=== PATIENT | female | born 1975 | race Hispanic/Latino ===

== ENCOUNTER 2018-07-30 14:29 | Emergency (ER) | payer OTHER ==
[2018-07-30] MEDS ORDERED: MORPHINE 4 MG/ML SYR ONE (15:20)
[2018-07-30] MEDS ORDERED: ONDANSETRON 4 MG/2 ML VIAL ONE (15:20)
[2018-07-30 15:27] LABS: Absolute Lymphocytes (CBC) 1.5 K/uL (0.7-4.9); Absolute Monocytes 0.5 K/uL (0.1-1.3); Absolute Neutrophil 7.2 K/uL (1.8-8.0); Basophils % 0.2 % (0-1.3); Eosinophils % 0.5 % (0-4.4); Hematocrit 34.7 % (36.0-45.0); Lymphocytes % 16.5 % (15.3-44.8); MCH 28.5 pg (27.0-35.0); MPV 7.3 fL (7.6-11.3); Monocytes % 5.8 % (3.3-12.3); RBC Red Blood Cell Count 4.09 M/uL (3.86-4.86)
[2018-07-30 16:39] LABS: Albumin 3.7 g/dL (3.4-5.0); Bilirubin Direct 0.2 mg/dL (0-0.2); Bilirubin Total 0.3 mg/dL (0.2-1.0); Protein, Total 7.9 g/dL (6.4-8.2)
--- NOTE | 2018-07-30 17:06 | RAD REPORT ---
EXAM DESCRIPTION: CT - Abdomen Pelvis W Contrast - 07/30/2018 4:48 pm CLINICAL HISTORY: Abdominal pain. Left-sided pain with vomiting COMPARISON: 2014 TECHNIQUE: Computed axial tomography of the abdomen and pelvis was obtained. 100 cc Isovue-300 is ad ministered intravenously. Oral contrast was given. All CT scans are performed using dose optimization technique as appropriate and may include automated exposure control or mA/KV adjustment according to patient size. FINDINGS: The gallbladder has been removed The liver, spleen, pancreas, adrenals and kidneys appear unremarkable. An adnexal mass is not seen. . There is no evidence of diverticulitis Postsurgical changes of a gastric bypass are seen. A moderate amount of stool is present within the colon Right periumbilical hernia contains fat. The neck measures 13 millimeters IMPRESSION: Moderate amount of stool within the colon
--- NOTE | 2018-07-30 17:19 | RAD REPORT ---
EXAM DESCRIPTION: [facility] Single View07/30/2018 4:12 pm CLINICAL HISTORY: Chest pain COMPARISON: 2014 FINDINGS: The lungs appear clear of acute infiltrate. The heart is normal size IMPRESSION: No acute abnormalities displayed
[2018-07-30 17:25] LABS: Urine Blood 2+ (NEG); Urine Glucose NEGATIVE (NEG); Urine Protein NEGATIVE (NEG); Urine Specific Gravity 1.015 (1.005-1.030); Urine pH 7.5 (5.0-7.0)
--- NOTE | 2018-07-30 18:43 | ER ---
Nurse's Notes [facility] Name: Elizabeth Cormier Age: 43 yrs Sex: Female : 1975 Arrival Date: 07/30/2018 Time: 14:32 Bed 30 Private MD: Juiec Bean B Diagnosis: Hepatitis Presentation: 07/30 14:33 Presenting complaint: Patient states: LUQ and LLQ pain that started this morning. c/o sv chest discomfort as well. c/o nausea. Transition of care: patient was not received from another setting of care. Onset of symptoms was July 30, 2018. Care prior to arrival: None. 14:33 Method Of Arrival: Ambulatory sv 14:33 Acuity: BHARATHI 3 sv 15:15 Risk Assessment: Do you want to hurt yourself or someone else? Patient reports no iw desire to harm self or others. Initial Sepsis Screen: Does the patient meet any 2 criteria? No. Patient's initial sepsis screen is negative. Does the patient have a suspected source of infection? No. Patient's initial sepsis screen is negative. 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 - Social history:: Smoking status: Patient/guardian denies using tobacco. - Ebola Screening: : Patient negative for fever greater than or equal to 101.5 degrees Fahrenheit, and additional compatible Ebola Virus Disease symptoms Patient denies exposure to infectious person Patient denies travel to an Ebola-affected area in the 21 days before illness onset No symptoms or risks identified at this time. Screenin:09 Abuse screen: Denies threats or abuse. Denies injuries from another. Nutritional iw screening: No deficits noted. Tuberculosis screening: No symptoms or risk factors identified. Fall Risk IV access (20 points). Assessment: 15:10 General: Appears uncomfortable, Behavior is calm, cooperative. Pain: Complains of pain iw in left low back and left mid back Pain radiates to right upper quadrant, left upper quadrant and left lower quadrant Pain currently is 8 out of 10 on a pain scale. Neuro: Level of Consciousness is awake, alert, obeys commands, Oriented to person, place, time, situation, Moves all extremities. Full function. Cardiovascular: Patient's skin is warm and dry. Respiratory: Respiratory effort is even, unlabored, Respiratory pattern is regular, symmetrical. GI: Abdomen is non-distended, Bowel sounds present X 4 quads. Abd is soft X 4 quads Reports upper abdominal pain, nausea, vomiting. : Denies burning with urination. Derm: Skin is intact, is healthy with good turgor. Musculoskeletal: Range of motion: intact in all extremities. 16:07 Reassessment: Patient appears in no apparent distress at this time. Patient and/or iw family updated on plan of care and expected duration. Pain level reassessed. Patient is alert, oriented x 3, equal unlabored respirations, skin warm/dry/pink. 16:32 Reassessment: Patient appears in no apparent distress at this time. Patient and/or iw family updated on plan of care and expected duration. Pain level reassessed. Patient is alert, oriented x 3, equal unlabored respirations, skin warm/dry/pink. pt states pain has improved, nausea is resolved Patient states feeling better. Patient states symptoms have improved. Vital Signs: 14:34 BP 119 / 71; Pulse 107; Resp 20; Temp 98.7; Pulse Ox 98% ; Weight 66.22 kg; Height 5 sv ft. 1 in. (154.94 cm); 16:09 BP 115 / 68; Pulse 102; Resp 16; Pulse Ox 100% on R/A; iw 17:19 BP 119 / 69; Pulse 98; Resp 16; Pulse Ox 100% on R/A; iw 14:34 Body Mass Index 27.58 (66.22 kg, 154.94 cm) sv ED Course: 14:32 Patient arrived in ED. as 14:33 Juice Bean MD is Private Physician. as 14:33 Triage completed. sv 14:34 Arm band placed on. sv 14:37 Fernando Montoya PA is PHCP. [facility] 14:37 Victor Manuel Nichols MD is Attending Physician. [facility] 14:48 Yumiko Delong, DENNIS is Primary Nurse. iw 15:00 Placed in gown. Bed in low position. Call light in reach. Side rails up X 1. Side rails jp3 up X2. Warm blanket given. Pillow given. Pulse ox on. NIBP on. 15:00 Urine collected: clean catch specimen, clear, lorne colored, blood tinged, Amount jp3 Voided: 120mL. 15:05 Initial lab(s) drawn, by me, sent to lab. Inserted saline lock: 22 gauge in right 3 antecubital area, using aseptic technique. Blood collected. 15:15 Urine --Ancillary (enter results) Sent. jp3 15:15 Urine Dipstick--Ancillary (enter results) Sent. jp3 15:15 Basic Metabolic Panel Sent. jp3 15:15 CBC with Diff Sent. jp3 15:15 Creatinine for Radiology Sent. jp3 15:15 Hepatic Function Sent. jp3 15:15 Lipase Sent. jp3 15:56 Troponin (emerg Dept Use Only) Sent. iw 15:56 Troponin (Emerg Dept Use Only) Sent. iw 16:05 EKG done, by ED staff, reviewed by Fernando EDGE. jp3 16:12 Chest Single View XRAY In Process Unspecified. EDMS 16:48 CT Abd/Pelvis - W/Contrast In Process Unspecified. EDMS 18:41 Theodore Sethi MD is Referral Physician. [facility] 19:00 No provider procedures requiring assistance completed. IV discontinued, intact, iw bleeding controlled, No redness/swelling at site. Pressure dressing applied. Administered Medications: 15:35 Drug: morphine 4 mg Route: IVP; Site: right antecubital; iw 15:35 Drug: Zofran 4 mg Route: IVP; Site: right antecubital; iw Outcome: 18:42 Discharge ordered by MD. [facility] 19:05 Discharged to home ambulatory, with family. iw 19:05 Condition: good 19:05 Discharge instructions given to patient, family, Instructed on discharge instructions, follow up and referral plans. Demonstrated understanding of instructions, follow-up care. 19:07 Patient left the ED. Signatures: Dispatcher [employer] EDMS Tania Faustin, RN RN Fernando Pizano PA PA jmm Martinez, Amelia as Williams, Irene, RN RN Himanshu Kolb jp3 Corrections: (The following items were deleted from the chart) 14:36 14:34 Pulse 107bpm; Resp 20bpm; Pulse Ox 98%; Temp 98.7F; 66.22 kg; Height 5 ft. 1 in.; sv BMI: 27.5; sv
--- NOTE | 2018-07-30 18:43 | EDPHYS ---
Physician Documentation [facility] Name: Elizabeth Cormier Age: 43 yrs Sex: Female : 1975 Arrival Date: 07/30/2018 Time: 14:32 Bed 30 Private MD: Juice Bean B ED Physician Victor Manuel Nichols HPI: 07/30 14:50 This 43 yrs old Female presents to ER via Ambulatory with complaints of jmm Abdominal Pain, Back Pain. 14:50 The patient presents with abdominal pain in the left lower quadrant. Onset: The jmm symptoms/episode began/occurred gradually, today. The symptoms radiate to abdomen. 14:50 Associated signs and symptoms: Pertinent positives: nausea. jmm 14:50 The patient has not experienced similar symptoms in the past. This is a 43 year old jmm female that presents to the ED with left side back pain, radiating into her abdomen beginning earlier today. Patient also complains of nausea with chest pain which is currently resolved. Patient has a surgical history of gastric bypass. Patient states symptoms were worse when diagnosed with diverticulitis. . 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 - Social history:: Smoking status: Patient/guardian denies using tobacco. - Ebola Screening: : Patient negative for fever greater than or equal to 101.5 degrees Fahrenheit, and additional compatible Ebola Virus Disease symptoms Patient denies exposure to infectious person Patient denies travel to an Ebola-affected area in the 21 days before illness onset No symptoms or risks identified at this time. ROS: 14:50 Constitutional: Negative for fever, chills, and weight loss, Cardiovascular: Negative jmm for chest pain, palpitations, and edema, Respiratory: Negative for shortness of breath, cough, wheezing, and pleuritic chest pain. 14:50 MS/Extremity: Negative for injury and deformity, Skin: Negative for injury, rash, and discoloration, Neuro: Negative for headache, weakness, numbness, tingling, and seizure. 14:50 Abdomen/GI: Positive for abdominal pain, nausea. 14:50 Back: Positive for pain at rest. 14:50 All other systems are negative. Exam: 14:50 Head/Face: atraumatic. Chest/axilla: Normal chest wall appearance and motion. [facility] Cardiovascular: Regular rate and rhythm. No edema appreciated Respiratory: Normal respirations, no respiratory distress appreciated 14:50 Constitutional: The patient appears in no acute distress, alert, awake. 14:50 Abdomen/GI: Inspection: abdomen appears normal, Bowel sounds: normal, Palpation: soft, mild abdominal tenderness, in the left upper quadrant and left lower quadrant. 14:50 Back: ROM is normal. 14:50 Skin: Appearance: Color: normal in color. 14:50 Neuro: Orientation: is normal, Mentation: is normal, Memory: is normal. 14:50 Psych: Behavior/mood is pleasant, cooperative. Vital Signs: 14:34 BP 119 / 71; Pulse 107; Resp 20; Temp 98.7; Pulse Ox 98% ; Weight 66.22 kg; Height 5 sv ft. 1 in. (154.94 cm); 16:09 BP 115 / 68; Pulse 102; Resp 16; Pulse Ox 100% on R/A; iw 17:19 BP 119 / 69; Pulse 98; Resp 16; Pulse Ox 100% on R/A; iw 14:34 Body Mass Index 27.58 (66.22 kg, 154.94 cm) sv MDM: 14:50 Patient medically screened. [facility] 18:40 Data reviewed: vital signs, nurses notes. Counseling: I had a detailed discussion with noy the patient and/or guardian regarding: the historical points, exam findings, and any diagnostic results supporting the discharge/admit diagnosis, the need for outpatient follow up, to return to the emergency department if symptoms worsen or persist or if there are any questions or concerns that arise at home. 18:40 Data reviewed: lab test result(s), radiologic studies, CT scan. [facility] 18:40 ED course: I discussed the patient with Dr. Ibarra whom will follow up with the [facility] patient in clinic. Patient is alert and non toxic in appearance in the ED on discharge. Patient is able to tolerate PO. Patient given strict return precautions. Patient understood and agrees with the plan of care. . 07/30 14:51 Order name: Basic Metabolic Panel; Complete Time: 16:51 [facility] 07/30 14:51 Order name: CBC with Diff; Complete Time: 15:38 [facility] 07/30 14:51 Order name: Creatinine for Radiology; Complete Time: 16:03 [facility] 07/30 14:51 Order name: Hepatic Function; Complete Time: 16:51 [facility] 07/30 14:51 Order name: Lipase; Complete Time: 16:51 [facility] 07/30 15:09 Order name: Urine Dipstick--Ancillary (enter results); Complete Time: 17:45 07/30 14:51 Order name: CT Abd/Pelvis - W/Contrast; Complete Time: 17:20 [facility] 07/30 15:09 Order name: Urine --Ancillary (enter results); Complete Time: 17:45 07/30 15:34 Order name: Troponin (emerg Dept Use Only) [facility] 07/30 15:34 Order name: Chest Single View XRAY; Complete Time: 17:20 [facility] 07/30 15:35 Order name: Troponin (Emerg Dept Use Only); Complete Time: 18:43 [facility] 07/30 17:52 Order name: EKG Electrocardiogram [facility] 07/30 14:51 Order name: IV Saline Lock; Complete Time: 15:11 [facility] 07/30 14:51 Order name: Labs collected and sent; Complete Time: 15:16 [facility] 07/30 15:34 Order name: EKG - Nurse/Tech; Complete Time: 16:05 [facility] Administered Medications: 15:35 Drug: morphine 4 mg Route: IVP; Site: right antecubital; iw 15:35 Drug: Zofran 4 mg Route: IVP; Site: right antecubital; iw Disposition: 07/30/18 18:42 Discharged to Home. Impression: Hepatitis. - Condition is Stable. - Discharge Instructions: Diet and Hepatitis. - Medication Reconciliation Form, Thank You Letter, Antibiotic Education, Prescription Opioid Use, Work release form form. - Follow up: Theodore Sethi MD; When: Tomorrow morning at 0810.; Reason: Recheck today's complaints, Continuance of care, Re-evaluation by your physician. Addendum: 08/01/2018 13:30 Co-signature as Attending Physician, Victor Manuel Nichols MD I agree with the assessment and k dr plan of care. Signatures: [facility] Roxie, Tania, RN RN Victor Manuel Barber MD MD kdr Mickail, Joel, PA PA jmm Williams, Irene, RN RN iw Corrections: (The following items were deleted from the chart) 07/30 19:07 18:42 07/30/2018 18:42 Discharged to Home. Impression: Hepatitis. Condition is Stable. iw Forms are Medication Reconciliation Form, Thank You Letter, Antibiotic Education, Prescription Opioid Use. Follow up: Theodore Sethi; When: Tomorrow morning at 0810.; Reason: Recheck today's complaints, Continuance of care, Re-evaluation by your physician. noy
[2018-07-30 19:11] VITALS: TEMP 98.7
[2018-07-30 19:12] VITALS: O2SAT 100
[2018-07-30 19:13] VITALS: BP 119/69
--- NOTE | 2018-07-31 08:16 | EKG ---
Test Date: 2018-07-30 Test Time: 16:01:14 [employer]: LITZY MEASUREMENT RESULTS: Intervals: Rate: 94 [place]: 134 QRSD: 88 QT: 352 QTc: 440 [place]: P: 42 [place]: 134 QRS: 9 T: -5 INTERPRETIVE STATEMENTS: Normal sinus rhythm Nonspecific T wave abnormality Abnormal ECG Compared to ECG 06/23/2013 10:10:02 T-wave abnormality now present Electronically Signed On 07-31-18 08:15:21 CDT by Isauro Coronado
== END 2018-07-30 19:07 | disposition home or self-care (01) ==
LOC: ER 14:29
DX: K75.9 Inflammatory liver disease, unspecified (principal)
CPT/HCPCS: 36415; 71045; 74177; 80048; 80076; 81003; 81025; 83690; 84484; 85025; 93005; 96374; 96375; 99284; J2405; Q9967

== ENCOUNTER 2018-09-30 06:02 | Day surgery (SDC) | payer OTHER ==
[2018-09-28 14:07] LABS: Absolute Monocytes 0.6 K/uL (0.1-1.3); Basophils % 0.5 % (0-1.3); Eosinophils % 1.5 % (0-4.4); Hematocrit 37.6 % (36.0-45.0); Lymphocytes % 61.3 % (15.3-44.8); MPV 7.5 fL (7.6-11.3); Monocytes % 6.1 % (3.3-12.3)
[2018-09-28 14:13] LABS: Urine Appearance CLEAR; Urine Bilirubin NEGATIVE (NEG); Urine Blood TRACE (NEG); Urine Color YELLOW; Urine Glucose NEGATIVE (NEG); Urine Protein NEGATIVE (NEG); Urine Urobilinogen 0.2 mg/dL (0.2-1.0); Urine pH 7.5 (5.0-7.0)
[2018-09-28 14:18] LABS: Urine Microscopic Reflex ORDER UMIC
[2018-09-28 14:32] LABS: Urine Amorphous Sediment 1+ /HPF (NONE SEEN); Urine Bacteria <20 /HPF (<20); Urine Culture Reflex Order NOT NEEDED; Urine Mucus 1+ /HPF (NONE SEEN)
[2018-09-28 17:19] LABS: Anisocytosis SLIGHT; Blood Morphology Comment NOTED (NOT SEEN); Platelet Estimate INCR; Urine White Blood Cell Casts DIFF
[2018-09-30 06:30] LABS: Specific Gravity 1.015 (1.005-1.030)
[2018-09-30] MEDS ORDERED: CEFAZOLIN 2GM (PREMIX IV) 2 GM/50 ML BAG ONE ×2 (06:32→06:33)
[2018-09-30] MEDS ORDERED: NA CHLORIDE 0.9% 1,000 ML ONE ×3 (06:32→07:00)
[2018-09-30] MEDS ORDERED: SCOPOLAMINE HYDROBROMIDE PATCH TD ONE (06:33)
[2018-09-30] MEDS ORDERED: PROPOFOL 200 MG/20 ML VIAL IV ONE ×2 (06:56→10:33)
[2018-09-30] MEDS ORDERED: ROCURONIUM 50 MG/5 ML VIAL IV ONE ×2 (06:56→08:12)
[2018-09-30] MEDS ORDERED: LIDOCAINE 2% MPF 5 ML VIAL ONE (06:57)
[2018-09-30] MEDS ORDERED: DEXAMETHASONE 10 MG/ML VIAL ONE (06:57)
[2018-09-30] MEDS ORDERED: FENTANYL CITR 250 MCG/5 ML ONE (06:58)
[2018-09-30] MEDS ORDERED: MIDAZOLAM HCL 2 MG/2 ML INJ ONE (06:58)
[2018-09-30] MEDS ORDERED: ONDANSETRON 4 MG/2 ML VIAL ONE ×2 (06:58→10:20)
[2018-09-30] MEDS ORDERED: NEOSTIGMINE 1 MG/ML -5 ML SYRINGE ONE (06:59)
[2018-09-30] MEDS ORDERED: GLYCOPYRROLATE 0.2 MG/ML SYR ONE ×2 (08:12)
[2018-09-30] MEDS ORDERED: EPHEDRINE SULF 50 MG/10 ML SYR ONE (08:18)
[2018-09-30] MEDS ORDERED: KETOROLAC 30 MG/ML INJ ONE (09:40)
[2018-09-30] MEDS: MEPERIDINE HCL 50 MG/ML AMP ONE ×5 (10:45→11:12)
[2018-09-30] MEDS ORDERED: IBUPROFEN 200 MG TAB PO ONE (13:41)
[2018-09-30] MEDS ORDERED: HYDROCODONE/APAP 5/325 MG TAB ONE (13:41)
[2018-09-30 15:29] VITALS: BP 124/65; TEMP 96.9; O2SAT 99
--- NOTE | 2018-10-04 18:43 | OP ---
Date of Procedure: 09/30/2018 Surgeon: Loren Celeste MD Type Proof Reproducer: Roxi Mars. Preoperative Diagnoses: Menorrhagia; dysmenorrhea; strong family history of breast, pancreatic, colo n, and ovarian cancer. The patient is BRCA negative. Postoperative Diagnoses: Menorrhagia; dysmenorrhea; strong family history of breast, pancreatic, col on, and ovarian cancer. The patient is BRCA negative. Procedures Performed: Total laparoscopic hysterectomy, bilateral salpingectomy, pelvic washings, lef t oophorectomy, cystoscopy. Ebl: Minimal. Complications: No complications. Drains: No drains. Condition: The patient's condition is stable. Specimens: Uterus, bilateral tubes and ovaries, pelvic washings and left ovary. Indications: The patient is a 43-year-old, 2, para 2, with 2 prior C-sections. Has had heav y bleeding that was treated with Mirena IUD that helped for about 2 years. Then it started causing i ssues, which then led us to remove the IUD. She coped well with this for a few years. The IUD was p laced by her prior HEAD TRANSFER CLERK more than 6 years ago. However, recently she has had weight loss surgery and then after the surgery she has started to bleed very heavy. She was evaluated for endometrial malign breanna and this was negative. We discussed her family history and the surgical treatment options in li ght of her family history. Her family history is very strong for breast cancer. She also has family members, mother with pancreatic cancer, maternal great grandmother with ovarian cancer, and maternal grandmother with colon cancer. She was tested for her genetic risks. Her mild risk testing profile was completely negative without any detectable genetic mutations related to any familial syndromes o f breast, ovarian, or colon cancers. Discussed the results of this. Discussed the option of an abla tion for treating bleeding, which I did not think was a good idea given all her history and her recen t unknown risk of uterine cancer. Also removing the tubes would decrease the risk of ovarian cancer. We discussed all these. However, patient is 43, so bilateral oophorectomy is not recommended for t his patient who is BRCA negative would offer no protection for her. However, if there was any irregu larity on one of the ovaries or anything was suspected, then I discussed that I would otherwise plan was to preserve the ovaries. I wonder about definitely do pelvic washings and removal of both tubes, removal of the uterus along with the cervix was recommended. After discussing the benefits and risk s of recovery surgery, the patient was consented and taken to the OR. Description Of Procedure: After informed consent was verified, patient was taken back to the OR, ezequiel neal in a supine fashion on the operating table. After general anesthesia was given, her legs were pl aced in the [place] stirrups. The arms tucked by the side. Pelvic exam performed. Uterus enlarged. No adnexal masses were noted, anteflexed. Abdomen, vulva, vagina, and perineum were prepped and drap ed in a sterile fashion. 2 g of Ancef were given. Speculum was used to expose the cervix anterior l ip, grasped with an Allis clamp. A large VCare introduced into the uterus and left in place after be ing fixed properly. Crespo was placed to drain the bladder and attached to cysto tubing to an LR bag, emptied 300. A supraumbilical incision was made with a scalpel using the open laparoscopy technique. Fascia was i ncised and tagged. [place] was introduced. Site of entry was checked and was unremarkable. This was an infraumbilical incision. It was an unremarkable entry. Site of entry was normal. Abdominal surfaces were checked. Very mini mal amount of scar tissue was seen. Upper abdominal surface was completely unremarkable. Omentum no rmal. The patient was placed in [facility]. The 10 mm suprapubic 5 mm left lower quadrant ports were placed under direct vision. There was some cystic changes on both tubes and the peritoneum of the u terus. No gross lesions detected suspicious for cancer. The left ovary had excrescences on it that were mostly unremarkable. However, the right ovary was completely normal. Pelvic washings were perf ormed. Then, both ureters were traced from the pelvic brim to the ureteric tunnels and there was no distortion. Anterior cul-de-sac had adhesions from the bladder due to her prior cesareans. Other th an this, there were no other distortions. The anterior broad ligament was dissected from inferior to the left round, opened up all the way to the level of the bladder. Then here, careful dissection wa s performed to identify the bladder, take the peritoneum along. The incision was well opened all the way to the right of the bladder flap. Then, round ligament, mesosalpinx tube, utero-ovarian ligamen t were all taken down. Posterior peritoneum taken down to the level of the left uterosacral. Broad ligament was skeletonized to expose the vessels. Opposite side similar dissection was performed star ting at anterior peritoneum inferior to the right round ligament. This was opened up gently and conn ected to the bladder flap. However, there was no further scar tissue here so came back to the round ligament, mesosalpinx to the uterine ligament, all these with the 5 mm LigaSure, then posterior perit oneum taken down to the right uterosacral the broad ligament was then systematically skeletonized pus h spread technique making small windows It came down to the vessels on the right side. The anterior scar was taken down opening up the bladder flap and the anterior cup was identified. Monopolar was u sed to open up the loose areolar tissue entering into the vesicovaginal space here and the bladder wa s pushed down inferiorly. First in the midline then on both sides taken down with the help of the sc ar, taken down with the help of the bipolar LigaSure on both sides. After the VCare cup was well exp osed then the pedicles were taken on the right, then supports the cardinal ligaments on the left side similar dissection for the vessels and the cardinal ligaments. Circumferential colpotomy with monop olar hook blade. The specimen was detached and pulled out through the vagina. Minimum bleeding from the left posterior peritoneum and colotomy. So, once the specimen was retrieved through the vagina, then this area was picked up and cauterized with the help of the bipolar. The left periureteric are a was visualized because there was suspicion for endometriosis here and the implants were very small, cauterized with the bipolar tip and left along. Thorough irrigation and suction were performed at t he colotomy. There was good hemostasis. The left tube, right tube, left ovary were removed with the help of the bipolar. The right ovary was completely normal and left alone. Colpotomy was closed with the help of a 0 Vicryl stitch at each angle and 3 [id number] in the m iddle. There was good closure healthy tissue to healthy tissue. Thorough irrigation and suction wer e performed after the closure. Gas was desufflated. Trocars were removed. The fascia was closed at the umbilicus with a 0 Vicryl in a [id number] fashion. Simple 0 Vicryl stitch to close the sub cutaneous tissues. The fascia at the suprapubic port was difficult to close and was not. The deep s titch was placed to bring this space together and closed. 4-0 Monocryl interrupted sutures for all s kin incisions. Cystoscopy was performed after the vaginal bulb and the Crespo were removed. A 17-Malay sheath, 30-d egree lens normal saline used for distention medium to both ureteric orifices were visualized. No ev idence of any trauma to the bladder. The bladder mucosa area above the trigone where the bladder dis section was performed from the scar tissue and for the C-sections. Both ureteric orifices patent wit h strong streams of urine through here. The bladder was then drained. Instrument, needle, and sponge counts were done and were correct at th e end of the case. The patient tolerated the procedure well. She was recovered from anesthesia and taken to the PACU in stable condition. CRISTHIAN/ALBERTO Voice ID: [id number] Report ID: [id number]
== END 2018-09-30 14:35 | disposition home or self-care (01) ==
LOC: OR 06:02
PROVIDERS: ATTEND Obstetrics & Gynecology
PROC: 0UT7FZZ Resection of Bilateral Fallopian Tubes, Via Natural or Artificial Opening With Percutaneous Endoscopic Assistance (ICD-10-PCS; 2018-09-30)
PROC: 0UT1FZZ Resection of Left Ovary, Via Natural or Artificial Opening With Percutaneous Endoscopic Assistance (ICD-10-PCS; 2018-09-30)
PROC: 0UT9FZZ Resection of Uterus, Via Natural or Artificial Opening With Percutaneous Endoscopic Assistance (ICD-10-PCS; principal; 2018-09-30 07:00)
DX: N92.0 Excessive and frequent menstruation with regular cycle (principal); D25.9 Leiomyoma of uterus, unspecified; Z80.41 Family history of malignant neoplasm of ovary; Z80.3 Family history of malignant neoplasm of breast; Z80.0 Family history of malignant neoplasm of digestive organs; Z80.8 Family history of malignant neoplasm of other organs or systems; E11.9 Type 2 diabetes mellitus without complications; Z79.84 Long term (current) use of oral hypoglycemic drugs; I10 Essential (primary) hypertension; E78.5 Hyperlipidemia, unspecified; K21.9 Gastro-esophageal reflux disease without esophagitis
CPT/HCPCS: 36415; 81003; 81015; 81025; 82962; 85025; 86850; 86900; 86901; 88108; 88305; 88307; J0690; J1100; J2175; J2250; J2405; J2704; J2710; J3010; J7030

== ENCOUNTER 2018-10-02 19:14 | Inpatient (IN) | payer OTHER ==
[2018-10-02] MEDS ORDERED: ACETAMINOPHEN 500 MG TAB ONE (20:06)
--- NOTE | 2018-10-02 20:33 | RAD REPORT ---
EXAM DESCRIPTION: [facility] Single View10/02/2018 8:22 pm CLINICAL HISTORY: Cough COMPARISON: July 2018 FINDINGS: Left base is mildly hazy. The right lung appears clear of acute infiltrate. The heart is normal size IMPRESSION: Left base is mildly hazy suspicious for pneumonia
[2018-10-02 20:54] LABS: Absolute Lymphocytes (CBC) 2.2 K/uL (0.7-4.9); Absolute Monocytes 0.2 K/uL (0.1-1.3); Basophils % 0.4 % (0-1.3); Eosinophils % 2.6 % (0-4.4); Hematocrit 37.8 % (36.0-45.0); Lymphocytes % 39.7 % (15.3-44.8); MCH 28.8 pg (27.0-35.0); MCV 87.5 fL (80-100); MPV 7.3 fL (7.6-11.3); Monocytes % 3.5 % (3.3-12.3); RBC Red Blood Cell Count 4.32 M/uL (3.86-4.86)
[2018-10-02] MEDS ORDERED: NA CHLORIDE 0.9% 1,000 ML ONE (21:01)
[2018-10-02 21:02] LABS: Protime INR 1.08
[2018-10-02] MEDS ORDERED: CEFTRIAXONE/SWI 1gm 2 GM/20 ML SYR ONE (21:11)
[2018-10-02] MEDS ORDERED: NA CHLORIDE 0.9% 50 ML IV ONE (21:11)
[2018-10-02 21:34] LABS: ALT/SGPT 553 U/L (12-78); Albumin 3.4 g/dL (3.4-5.0); Alkaline Phosphatase 178 U/L (45-117); BUN Blood Urea Nitrogen 7 mg/dL (7-18); Bicarbonate 27 mmol/L (21-32); Bilirubin Direct 0.1 mg/dL (0-0.2); Bilirubin Total 0.2 mg/dL (0.2-1.0); Glucose Level 129 mg/dL (74-106); Magnesium 1.7 mg/dL (1.8-2.4); NT PRO-BNP 197 pg/mL (<125); Potassium 3.7 mmol/L (3.5-5.1); Protein, Total 7.6 g/dL (6.4-8.2); Sodium Level 137 mmol/L (136-145); Troponin (Emerg Dept Use Only) < 0.02 ng/mL (0.0-0.045)
[2018-10-02 21:38] LABS: AST/SGOT 420 U/L (15-37)
[2018-10-02] MEDS ORDERED: AZITHROMYCIN 500 MG/250 ML BAG ONE (21:48)
[2018-10-02 22:00] LABS: Urine Bacteria <20 /HPF (<20); Urine Culture Reflex Order NOT NEEDED; Urine Mucus 1+ /HPF (NONE SEEN); Urine RBC <5 /HPF (NONE SEEN)
[2018-10-02 22:00] LABS: Urine Blood NEGATIVE (NEG); Urine Glucose NEGATIVE (NEG); Urine Protein NEGATIVE (NEG)
[2018-10-02] MEDS ORDERED: MAGNESIUM SULFATE 1 gm IVPB 1 GM/100 ML BAG IV ONE (22:14)
[2018-10-02] MEDS ORDERED: VANCOMYCIN 1 GM/250 ML BAG ONE (22:14)
--- NOTE | 2018-10-03 00:41 | EDPHYS ---
Physician Documentation [facility] Name: Elizabeth Cormier Age: 43 yrs Sex: Female : 1975 Arrival Date: 10/02/2018 Time: 19:15 Bed 7 Private MD: ED Physician Aubrie Barclay HPI: 10/02 19:50 This 43 yrs old Female presents to ER via Ambulatory with complaints of Fever, cp Congestion. 19:50 The patient reports fever, with an emergency department temperature of 102.6 degrees cp Fahrenheit. 19:50 Onset: The symptoms/episode began/occurred yesterday. cp 19:50 Associated signs and symptoms: Pertinent positives: cough, congestion, Pertinent cp negatives: chest pain, diarrhea, vomiting. Severity of symptoms: in the emergency department the symptoms are unchanged despite home interventions. 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 - Social history:: Smoking status: Patient/guardian denies using tobacco. - Ebola Screening: : Patient denies exposure to infectious person Patient denies travel to an Ebola-affected area in the 21 days before illness onset. ROS: 20:00 Constitutional: Positive for fever, Negative for body aches, chills, poor PO intake. cp 20:00 Eyes: Negative for injury, pain, redness, and discharge. cp 20:00 ENT: Positive for sore throat, Negative for drainage from ear(s), ear pain, difficulty swallowing, difficulty handling secretions. 20:00 Cardiovascular: Negative for chest pain, edema, palpitations. 20:00 Respiratory: Positive for cough, Negative for wheezing. 20:00 Abdomen/GI: Negative for vomiting, diarrhea, constipation. 20:00 Skin: Negative for cellulitis, rash. 20:00 Neuro: Negative for altered mental status, headache, weakness. 20:00 All other systems are negative. Exam: 20:05 Constitutional: The patient appears in no acute distress, alert, awake, non-toxic, well cp developed, well nourished, febrile. 20:05 Head/Face: Normocephalic, atraumatic. Eyes: Pupils equal round and reactive to light, cp extra-ocular motions intact. Lids and lashes normal. Conjunctiva and sclera are non-icteric and not injected. Cornea within normal limits. Periorbital areas with no swelling, redness, or edema. ENT: Nares patent. No nasal discharge, no septal abnormalities noted. Tympanic membranes are normal and external auditory canals are clear. Oropharynx with no redness, swelling, or masses, exudates, or evidence of obstruction, uvula midline. Mucous membranes moist. Neck: Trachea midline, no thyromegaly or masses palpated, and no cervical lymphadenopathy. Supple, full range of motion without nuchal rigidity, or vertebral point tenderness. No Meningismus. Chest/axilla: Normal chest wall appearance and motion. Nontender with no deformity. No lesions are appreciated. 20:05 Cardiovascular: Rate: tachycardic, Rhythm: regular, Pulses: Heart sounds: murmur, rub, gallop, Edema: is not appreciated, JVD: is not appreciated. 20:05 Respiratory: the patient does not display signs of respiratory distress, Respirations: normal, no use of accessory muscles, no retractions, no splinting, no tachypnea, labored breathing, is not present, Breath sounds: decreased breath sounds, are not appreciated, rhonchi, that are mild, are heard in the left posterior lower lobe, + upper airway congestion. 20:05 Abdomen/GI: Inspection: distension, is not seen, Bowel sounds: active, all quadrants, Palpation: soft, in all quadrants, mild abdominal tenderness, in all quadrants, rebound tenderness, is not appreciated, voluntary guarding, is not appreciated, involuntary guarding, is not appreciated. 20:05 Back: pain, is absent, ROM is normal. 20:05 Skin: cellulitis, is not appreciated, no rash present. 20:05 Neuro: Orientation: to person, place \T\ time. Mentation: is normal, Cerebellar function: is grossly normal, Motor: moves all fours, strength is normal, Sensation: is normal. 20:19 ECG was reviewed by the Attending Physician. cp Vital Signs: 19:34 BP 143 / 82; Pulse 103; Resp 16; Temp 102.6(O); Pulse Ox 98% on R/A; Weight 67.59 kg; ss Height 5 ft. 1 in. (154.94 cm); Pain 8/10; 20:51 BP 116 / 73; Pulse 109; Resp 22; Temp 101.6(O); Pulse Ox 96% on R/A; bb 22:15 BP 109 / 66; Pulse 83; Resp 20 S; Temp 100.2(O); Pulse Ox 97% on R/A; bb 23:41 BP 118 / 70; Pulse 106; Resp 22 S; Temp 99.9(O); Pulse Ox 97% on R/A; bb 10/03 00:31 BP 101 / 83; Pulse 88; Resp 17; Pulse Ox 98% ; ea 01:15 BP 129 / 81; Pulse 88; Resp 20; Pulse Ox 97% on R/A; ea 02:00 BP 129 / 81; Pulse 80; Resp 18; Pulse Ox 98% ; ea 03:50 BP 137 / 77; Pulse 90; Resp 18; Pulse Ox 97% on R/A; ea 10/02 19:34 Body Mass Index 28.15 (67.59 kg, 154.94 cm) ss MDM: 10/02 19:37 Patient medically screened. cp 10/03 00:38 Differential diagnosis: viral Infection, bacterial infection, URI, bronchitis, ma2 pneumonia. Data reviewed: vital signs, nurses notes, lab test result(s), EKG. Counseling: I had a detailed discussion with the patient and/or guardian regarding: the historical points, exam findings, and any diagnostic results supporting the discharge/admit diagnosis, the presence of at least one elevated blood pressure reading (>120/80) during this emergency department visit. Response to treatment: the patient's symptoms have markedly improved after treatment. 00:41 ED course: ct ordered for elevated enzymes, tech informed us unable to send to id2 radiologist.. no abd pain . 10/02 19:47 Order name: Influenza Screen (a \T\ B); Complete Time: 21:05 cp 10/02 19:47 Order name: Basic Metabolic Panel; Complete Time: 21:40 cp 10/02 19:47 Order name: CBC with Diff; Complete Time: 21:05 cp 10/02 21:05 Interpretation: Normal except: WBC 5.7; PLT 283; RDW 17.7; MPV 7.3. cp 10/02 19:47 Order name: LFT's; Complete Time: 21:40 12/14 21:41 Interpretation: Normal except: AST 420; ALT 553; ALK 178; GLOB 4.2; A/G 0.8. / 19:47 Order name: Magnesium; Complete Time: 21:40 12/14 21:41 Interpretation: Abnormal: MG 1.7. / 19:47 Order name: NT PRO-BNP; Complete Time: 21:40 10/02 19:47 Order name: PT-INR; Complete Time: 21:17 10/02 21:17 Interpretation: PT 12.8; Reviewed. 10/02 19:47 Order name: Troponin (emerg Dept Use Only); Complete Time: 21:40 10/02 19:47 Order name: Procalcitonin; Complete Time: 21:30 14 21:30 Interpretation: Reviewed. 10/02 19:47 Order name: Lactate; Complete Time: 21:17 10/02 19:47 Order name: Blood Culture Adult (2) 10/02 20:54 Order name: Urine Microscopic Only; Complete Time: 22:02 10/02 21:44 Order name: LAB Add On 10/02 21:49 Order name: Urine Dipstick--Ancillary (enter results); Complete Time: 22:02 ag4 10/02 19:47 Order name: XRAY Chest (1 view); Complete Time: 20:35 10/02 20:35 Interpretation: Report review. 10/02 19:47 Order name: EKG; Complete Time: 19:48 10/02 19:47 Order name: Cardiac monitoring; Complete Time: 20:19 10/02 19:47 Order name: EKG - Nurse/Tech; Complete Time: 20:20 10/02 19:47 Order name: IV Saline Lock; Complete Time: 20:33 10/02 19:47 Order name: Labs collected and sent; Complete Time: 21:11 10/02 19:47 Order name: O2 Per Protocol; Complete Time: 20:20 10/02 21:49 Order name: CT Chest, Abdomen, Pelvis - W/Contrast: elevated liver enzymes, post cp hysterectomy 2 days ago 10/02 19:47 Order name: O2 Sat Monitoring; Complete Time: 20:20 cp 10/02 20:54 Order name: Urine Dipstick-Ancillary (obtain specimen); Complete Time: 22:00 cp EC/14 20:19 Rate is 109 beats/min. Rhythm is regular. MI interval is normal. QRS interval is cp normal. QT interval is normal. Interpreted by me. Reviewed by me. Administered Medications: 20:05 Drug: Tylenol 1000 mg Route: PO; ea 20:52 Follow up: Response: Temperature is decreased bb 21:00 Drug: NS 0.9% 1000 ml Route: IV; Rate: 1 bolus; Site: left antecubital; ea 22:30 Follow up: Response: No adverse reaction; IV Status: Completed infusion ea 21:11 Drug: Rocephin - (cefTRIAXone) 2 grams Route: IVPB; Infused Over: 30 mins; Site: left bb antecubital; 22:03 Follow up: IV Status: Completed infusion; IV Intake: 60ml bb 22:13 Drug: Zithromax 500 mg Route: IVPB; Infused Over: 1 hrs; Site: left antecubital; bb 23:15 Follow up: Response: No adverse reaction; IV Status: Completed infusion; IV Intake: ea 250ml 22:14 Drug: Magnesium Sulfate 1 grams Route: IVPB; Infused Over: 1 hrs; Site: left bb antecubital; 23:15 Follow up: Response: No adverse reaction; IV Status: Completed infusion; IV Intake: ea 100ml 23:20 Drug: vancoMYCIN 1 grams Route: IVPB; Infused Over: 2 hrs; Site: left antecubital; ea 10/03 01:30 Follow up: Response: No adverse reaction; IV Status: Completed infusion; IV Intake: ea 250ml 02:29 Drug: morphine 4 mg Route: IVP; Site: left antecubital; ea 03:14 Follow up: Response: No adverse reaction; Pain is decreased ea 02:30 Drug: Zofran 4 mg Route: IVP; Site: left antecubital; ea 03:14 Follow up: Response: No adverse reaction ea Disposition: 00:40 Co-signature as Attending Physician, Aubrie Barclay MD. ma2 Disposition: 10/03/18 00:40 Hospitalization ordered by Cindy Martínze for Inpatient Admission. Preliminary diagnosis is Pneumonia due to other specified bacteria. - Bed requested for Telemetry/MedSurg (Inpatient). - Status is Inpatient Admission. ea - Condition is Stable. - Problem is new. - Symptoms are unchanged. UTI on Admission? No Signatures: Dispatcher [employer] EDElizabeth Worthington RN Hien Cruz RN RN bb Smirch, Shelby, RN RN ss Page, Corey, PA PA cp Antunez, Elena, RN RN ea Alzahri, Mohammad, MD MD ma2 Corrections: (The following items were deleted from the chart) 03:25 00:40 Hospitalization Ordered by Cindy Martínez MD for Inpatient Admission. Preliminary diagnosis is Pneumonia due to other specified bacteria. Bed requested for Telemetry/MedSurg (Inpatient). Status is Inpatient Admission. Condition is Stable. Problem is new. Symptoms are unchanged. UTI on Admission? No. ma2 04:04 03:25 10/03/2018 00:40 Hospitalization Ordered by Cindy Martínez MD for Inpatient ea Admission. Preliminary diagnosis is Pneumonia due to other specified bacteria. Bed requested for Telemetry/MedSurg (Inpatient). Status is Inpatient Admission. Condition is Stable. Problem is new. Symptoms are unchanged. UTI on Admission? No. kl
--- NOTE | 2018-10-03 00:41 | ER ---
Nurse's Notes [facility] Name: Elizabeth Cormier Age: 43 yrs Sex: Female : 1975 Arrival Date: 10/02/2018 Time: 19:15 Bed 7 Private MD: Diagnosis: Pneumonia due to other specified bacteria Presentation: 10/02 19:32 Presenting complaint: Patient states: Sent by Dr. Celeste as patient had a ss hysterectomy two days ago and is now running a fever. Pt reports cough and fever began yesterday. Transition of care: patient was not received from another setting of care. Resp Distress? No respiratory distress is noted at this time. Onset of symptoms was September 30, 2018. Risk Assessment: Do you want to hurt yourself or someone else? Patient reports no desire to harm self or others. Initial Sepsis Screen: Does the patient meet any 2 criteria? HR > 90 bpm. Does the patient have a suspected source of infection? Yes: Productive cough/pneumonia. Care prior to arrival: None. 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 - Social history:: Smoking status: Patient/guardian denies using tobacco. - Ebola Screening: : Patient denies exposure to infectious person Patient denies travel to an Ebola-affected area in the 21 days before illness onset. Screenin:12 Abuse screen: Denies threats or abuse. Nutritional screening: No deficits noted. bb Tuberculosis screening: No symptoms or risk factors identified. Fall Risk None identified. Assessment: 19:40 General: Appears in no apparent distress. Behavior is calm, cooperative. Pain: bb Complains of pain in abdomen. Neuro: Level of Consciousness is awake, alert, obeys commands, Oriented to person, place, time, situation. Cardiovascular: Heart tones S1 S2 present Capillary refill < 3 seconds Patient's skin is warm and dry. Rhythm is sinus tachycardia. Respiratory: Airway is patent Respiratory effort is unlabored, Respiratory pattern is regular, Breath sounds are clear bilaterally. GI: No signs and/or symptoms were reported involving the gastrointestinal system. Derm: Skin is pink, warm \T\ dry. Musculoskeletal: Circulation, motion, and sensation intact. 19:45 GI: Abdomen is non-distended, Bowel sounds present X 4 quads. Abd is soft and non bb tender X 4 quads. incisions intact covered with steri-strips no erythema noted. 20:53 Reassessment: Patient and/or family updated on plan of care and expected duration. Pain bb level reassessed. Patient is alert, oriented x 3, equal unlabored respirations, skin warm/dry/pink. awaiting diagnostic results, family at bedside. 22:14 Reassessment: Patient and/or family updated on plan of care and expected duration. Pain bb level reassessed. Patient is alert, oriented x 3, equal unlabored respirations, skin warm/dry/pink. pt returned from CT IV site intact, patent, family at bedside awaiting results. 10/03 00:15 Reassessment: Patient and/or family updated on plan of care and expected duration. Pain ea level reassessed. Patient is alert, oriented x 3, equal unlabored respirations, skin warm/dry/pink. Provider at bedside updating pt on plan of care. 01:45 Reassessment: Patient and/or family updated on plan of care and expected duration. Pain ea level reassessed. Patient is alert, oriented x 3, equal unlabored respirations, skin warm/dry/pink. 02:50 Reassessment: Patient and/or family updated on plan of care and expected duration. Pain ea level reassessed. Patient is alert, oriented x 3, equal unlabored respirations, skin warm/dry/pink. Awaiting on room assignment. 03:50 Reassessment: Patient and/or family updated on plan of care and expected duration. Pain ea level reassessed. Patient is alert, oriented x 3, equal unlabored respirations, skin warm/dry/pink. Report called to receiving nurse on fourth floor. 03:59 Reassessment: Patient and/or family updated on plan of care and expected duration. Pain ea level reassessed. Patient is alert, oriented x 3, equal unlabored respirations, skin warm/dry/pink. Pt taken to fourth floor per wheelchair by geoscience laboratory technician. Tolerated well. Vital Signs: 10/02 19:34 BP 143 / 82; Pulse 103; Resp 16; Temp 102.6(O); Pulse Ox 98% on R/A; Weight 67.59 kg; ss Height 5 ft. 1 in. (154.94 cm); Pain 8/10; 20:51 BP 116 / 73; Pulse 109; Resp 22; Temp 101.6(O); Pulse Ox 96% on R/A; bb 22:15 BP 109 / 66; Pulse 83; Resp 20 S; Temp 100.2(O); Pulse Ox 97% on R/A; bb 23:41 BP 118 / 70; Pulse 106; Resp 22 S; Temp 99.9(O); Pulse Ox 97% on R/A; bb 12 00:31 BP 101 / 83; Pulse 88; Resp 17; Pulse Ox 98% ; ea 01:15 BP 129 / 81; Pulse 88; Resp 20; Pulse Ox 97% on R/A; ea 02:00 BP 129 / 81; Pulse 80; Resp 18; Pulse Ox 98% ; ea 03:50 BP 137 / 77; Pulse 90; Resp 18; Pulse Ox 97% on R/A; ea 10/02 19:34 Body Mass Index 28.15 (67.59 kg, 154.94 cm) ss Vitals: 10/02 22:16 Cardiac Rhythm Assessment Sinus rhythm. bb ED Course: 19:15 Patient arrived in ED. al2 19:34 Triage completed. ss 19:34 Arm band placed on right wrist. ss 19:36 Shin Silvestre PA is PHCP. cp 19:36 Aubrie Barclay MD is Attending Physician. cp 19:45 Patient has correct armband on for positive identification. Placed in gown. Bed in low bb position. Call light in reach. Side rails up X 1. Adult w/ patient. Pulse ox on. NIBP on. 20:22 XRAY Chest (1 view) In Process Unspecified. EDMS 21:02 Inserted saline lock: 20 gauge in left antecubital area, using aseptic technique. Blood oe collected. 21:16 Hien Torres, DENNIS is Primary Nurse. bb 21:16 Hien Torres, DENNIS is Primary Nurse. bb 21:37 Notified Nurse Practitioner and/or Physician Reimbursement Counselor of a critical lab result(s), AST fc 420, alt 553. 22:[address] nj 22:02 CT completed. Patient tolerated procedure well. Patient moved back from CT. nj 22:02 CT Chest, Abdomen, Pelvis - W/Contrast: elevated liver enzymes, post hysterectomy 2 EDMS days ago In Process Unspecified. 10/03 00:40 Cindy Martínez MD is Hospitalizing Provider. ma2 03:57 No provider procedures requiring assistance completed. Patient admitted, IV remains in ea place. Administered Medications: 10/02 20:05 Drug: Tylenol 1000 mg Route: PO; ea 20:52 Follow up: Response: Temperature is decreased bb 21:00 Drug: NS 0.9% 1000 ml Route: IV; Rate: 1 bolus; Site: left antecubital; ea 22:30 Follow up: Response: No adverse reaction; IV Status: Completed infusion ea 21:11 Drug: Rocephin - (cefTRIAXone) 2 grams Route: IVPB; Infused Over: 30 mins; Site: left bb antecubital; 22:03 Follow up: IV Status: Completed infusion; IV Intake: 60ml bb 22:13 Drug: Zithromax 500 mg Route: IVPB; Infused Over: 1 hrs; Site: left antecubital; bb 23:15 Follow up: Response: No adverse reaction; IV Status: Completed infusion; IV Intake: ea 250ml 22:14 Drug: Magnesium Sulfate 1 grams Route: IVPB; Infused Over: 1 hrs; Site: left bb antecubital; 23:15 Follow up: Response: No adverse reaction; IV Status: Completed infusion; IV Intake: ea 100ml 23:20 Drug: vancoMYCIN 1 grams Route: IVPB; Infused Over: 2 hrs; Site: left antecubital; ea 10/03 01:30 Follow up: Response: No adverse reaction; IV Status: Completed infusion; IV Intake: ea 250ml 02:29 Drug: morphine 4 mg Route: IVP; Site: left antecubital; ea 03:14 Follow up: Response: No adverse reaction; Pain is decreased ea 02:30 Drug: Zofran 4 mg Route: IVP; Site: left antecubital; ea 03:14 Follow up: Response: No adverse reaction ea Intake: 10/02 22:03 IV: 60ml; Total: 60ml. bb 23:15 IV: 100ml; Total: 160ml. ea 23:15 IV: 250ml; Total: 410ml. ea 10/03 01:30 IV: 250ml; Total: 660ml. ea Outcome: 00:40 Decision to Hospitalize by Provider. ma2 01:00 Instructed on the need for admit, Demonstrated understanding of instructions. ea 03:57 Admitted to Med/surg accompanied by tech, via wheelchair, room 413, with chart, Report ea called to Receiving nurse on fourth floor 03:57 Condition: stable 04:04 Patient left the ED. ea Signatures: Dispatcher [employer] EDMS Sarita Joe RN RN fc Ballard, Brenda, RN RN bb Smirch, Shelby, RN RN ss Shin Silvestre PA PA Faraz Delvalle Orlando oe Antunez, Elena, RN RN ea Love, Angelica al2 Alzahri, Mohammad, MD MD ma2 Corrections: (The following items were deleted from the chart) 10/02 23:38 23:36 BP 95 / 58; Pulse 88bpm; Resp 18bpm; Pulse Ox 100%; ea ea 23:41 23:36 Reassessment: Patient and/or family updated on plan of care and expected bb duration. Pain level reassessed. Patient is alert, oriented x 3, equal unlabored respirations, skin warm/dry/pink. Patient states feeling better. Patient states symptoms have improved. ea
[2018-10-03] MEDS ORDERED: MORPHINE 4 MG/ML SYR ONE (02:24)
[2018-10-03] MEDS ORDERED: ONDANSETRON 4 MG/2 ML VIAL ONE (02:24)
--- NOTE | 2018-10-03 03:07 | P.HP ---
Certification for Inpatient Patient admitted to: Inpatient With expected LOS: >2 Midnights Practitioner: I am a practitioner with admitting privileges, knowledge of patient current condition, hospital course, and medical plan of care. Services: Services provided to patient in accordance with Admission requirements found in Title 42 Section 412.3 of the Code of Federal Regulations Patient History Date of Service: 10/03/18 Reason for admission: penumonia History of Present Illness: Ms Cormier is a 43 years old woman with history of DM II, abnormal liver enzymes of unknown reason, F/U by Dr Sethi, who had a laparascopic total hysterectomy with bilateral salpingectomy and left oophorectomy, 2 days ago. Ones the patient was discharged home, she start having productive cough and spike fever, about 102.6 F. Before surgery day, she was fine. Her sputum has been yellow/green, and today become more pinkwish. At arrival to ED, the patient was febrile. O2 sat 98% on RA. CT abd/pelvis shows changes related recent surgery, CXR remarkable for left base infiltrate consistent with pneumonia. Lab work remarkable for normal WBC count, lactate and procalcitonin normal. Allergies No Known Drug Allergies Allergy (Verified 04/28/15 19:44) Unknown Home medications list reviewed: Yes Home Medications: Cyanocobalamin/Folic Acid [B-12 1,000 Mcg Sub Tablet] 2,000 mcg PO BID 04/30/13 Calcium Carbonate/Vitamin D3 [Calcium 500 + Vit D Caplet] 1 each PO DAILY Cholecalciferol (Vitamin D3) [Vitamin D3] 5,000 unit PO DAILY 09/28/18 Loratadine [Claritin] 10 mg PO DAILY 09/28/18 Metformin HCl 1,000 mg PO BID 09/28/18 Multivitamin [Multivitamins] 1 each PO DAILY 09/28/18 - Past Medical/Surgical History Diabetic: No -: HTN -: IDDM -: Hyperlipidemia -: c-sections -: tubal ligation -: Cholecystectomy-2012 -: hysterctomy - Family History Father -: Heart disease Mother -: Diabetes - Social History Smoking Status: Never smoker Alcohol use: Yes CD- Drugs: No Caffeine use: Yes Place of Residence: Home Review of Systems 10-point ROS is otherwise unremarkable Physical Examination - Physical Exam General: Alert, In no apparent distress HEENT: Atraumatic, PERRLA, Mucous membr. moist/pink, EOMI, Sclerae nonicteric Neck: Supple, 2+ carotid pulse no bruit, No LAD, Without JVD or thyroid abnormality Respiratory: Normal air movement, Crackles/rales (left base crackles), Expiratory wheezes (scattered left side wheezes) Cardiovascular: Regular rate/rhythm, Normal S1 S2 Gastrointestinal: Normal bowel sounds, No tenderness Musculoskeletal: No tenderness Integumentary: No rashes, Other (surgical incisions without purulent secretion.) Neurological: Normal gait, Normal speech, Normal strength at 5/5 x4 extr, Normal tone, Normal affect Lymphatics: No axilla or inguinal lymphadenopathy - Studies Laboratory Data (last 24 hrs) 10/02/18 20:30: PT 12.8 H, INR 1.08 10/02/18 20:30: WBC 5.7 D, Hgb 12.5, Hct 37.8, Plt Count 283 D 10/02/18 20:30: Sodium 137, Potassium 3.7, BUN 7, Creatinine 0.70, Glucose 129 H , Magnesium 1.7 L, Total Bilirubin 0.2, AST 420 H*, ALT 553 H*, Alkaline Phosphatase 178 H Microbiology Data (last 24 hrs): 10/02/18 20:00 Nasopharnyx Influenza Type A Antigen Screen - Final 10/02/18 20:00 Nasopharnyx Influenza Type B Antigen Screen - Final Assessment and Plan - Problems (Diagnosis) (1) Diabetes mellitus Current Visit: Yes Status: Acute Qualifiers: Diabetes mellitus type: type 2 Diabetes mellitus shelter insulin use: without ferry terminal agent use Diabetes mellitus complication status: with unspecified complications Qualified Code(s): E11.8 - Type 2 diabetes mellitus with unspecified complications (2) S/P hysterectomy Current Visit: Yes Status: Acute (3) Pneumonia Onset Date: 05/01/15 Current Visit: No Status: Acute Qualifiers: Pneumonia type: due to unspecified organism Laterality: left - Plan The patient will be admitted to the hospital due to left base pneumonia. Her symptoms started after her hospitalization, however does not meet criteria for hospital acquired pneumonia since was discharged same day of admission. Aspiration pneumonia is one of the differential diagnosis. Will start empiric treatment with zosyn. Order IV fluids and PRN breathing treatments. Blood cultures and sputum cultures in process. - Advance Directives Does patient have a Living Will: No Does patient have a Durable POA for Healthcare: No - Code Status/Comfort Care Code Status Assessed: Yes Code Status: Full Code
[2018-10-03] MEDS ORDERED: ALBUTEROL 2.5 MG/3 ML NEB SOL NEB PRN (03:44)
[2018-10-03] MEDS ORDERED: GLUCAGON 1 MG/VIAL IM PRN (03:44)
[2018-10-03] MEDS ORDERED: IPRATROPIUM BROM 0.5MG/2.5ML NEB PRN (03:44)
[2018-10-03] MEDS ORDERED: ACETAMINOPHEN 500 MG TAB PO PRN (03:44)
[2018-10-03] MEDS ORDERED: D50W 25 GM/50 ML SYRINGE IV PRN (03:44)
[2018-10-03] MEDS ORDERED: ONDANSETRON 4 MG/2 ML VIAL IV PRN (03:44)
[2018-10-03] MEDS: MORPHINE 2 MG/ML SYR IV PRN ×2 (04:45→16:48)
[2018-10-03] MEDS: NA CHLORIDE 0.9% 1,000 ML IV SCH ×3 (04:45→23:44)
[2018-10-03] MEDS: IBUPROFEN 200 MG TAB PO PRN ×3 (04:45→17:50)
[2018-10-03] MEDS ORDERED: PIPER/TAZO/NS 3.375gm 3.375 GM/100 ML BAG ONE (04:48)
[2018-10-03 05:22] VITALS: BMI 27.3
[2018-10-03] MEDS ORDERED: PIPER/TAZO/NS 3.375gm 3.375 GM/100 ML BAG IVPB SCH (06:00)
[2018-10-03] MEDS: INSULIN -REGULAR HUMAN 50 UNIT/0.5 ML ML SQ SCH ×4 (07:30→21:00)
[2018-10-03] MEDS ORDERED: TRAMADOL HCL 50 MG TAB PO PRN (07:42)
--- NOTE | 2018-10-03 07:52 | RAD REPORT ---
EXAM DESCRIPTION: CT - Chest Abdomen Pelvis W Cont - 10/03/2018 6:01 am CLINICAL HISTORY: Fever, recent hysterectomy, cough, prior cholecystectomy, gastric bypass A preliminary report was provided at the time of the study and reviewed prior to final report. COMPARISON: CT study July 30, 2018 TECHNIQUE: Following dynamic enhancement using 100 milliliters nonionic IV contrast, axial imaging o f the chest, abdomen and pelvis was performed. Biphasic technique was utilized through the abdomen. No oral contrast administered. All CT scans are performed using dose optimization technique as appropriate and may include automated exposure control or mA/KV adjustment according to patient size. FINDINGS: Airspace opacification is present throughout much of the lung evans are otherwise clear. No cavitation or mass. No pleural effusion, pleural thickening or pneumothorax. No significant aortic or pulmonary arterial tree finding. Mediastinal and hilar regions show no mass or abnormal lymphaden opathy. No chest wall mass or axillary lymphadenopathy. The liver, spleen and pancreas show no suspicious findings. Cholecystectomy clips are present. No hannah iary tree dilatation. Symmetric renal function is seen with no mass or hydronephrosis. No adrenal abn ormalities. Gastric bypass surgical changes are noted. No acute gastric finding. Small bowel loops are mildly pro minent. Moderate stool volume present in the colon. No acute colon process. Uterus is absent matching surgical history. Small amount of air in the urinary bladder is presumed to be from recent catheterization or recent Crespo catheter placement. Maurer of the urinary bladder are mildly prominent for this degree of distention. Correlation can be made with any UA abnormality or fi ndings of cystitis. A mild congestion or edema seen in the peritoneal fat, not unexpected for recent surgery. Patient has a supraumbilical ventral hernia. This is 3 cm in diameter with an 11 millimeter neck. No congested f at. No bowel involvement. The hernia is similar to the July study. Stranding in the lower abdomina l subcutaneous fat matches the prior procedure or possibly the hysterectomy surgical change . No air, abscess or acute finding seen. No peritoneal or retroperitoneal source for infection seen. No acute or destructive bony process. No significant vascular findings. IMPRESSION: Moderately large left lower lobe pneumonia. Maurer of the urinary bladder are mildly prominent for the degree of distention. Cystitis is not exclu ded and can be correlated with any clinical findings or UA abnormalities. Small bowel loops are mildly prominent. A nonspecific enteritis would be possible. Additional nonacute findings are detailed in the body of the report.
[2018-10-03 08:33] LABS: Lipase 39 U/L (73-393)
[2018-10-03] MEDS ORDERED: INFLUENZA VACCINE (for 3y+) 0.5 ML DOSE IMVAC ONE (10:00)
[2018-10-03] MEDS ORDERED: PNEUMOCOCCAL VACCINE 0.5 ML IMVAC ONE (10:00)
[2018-10-03] MEDS: PIPER/TAZO/NS 3.375gm 3.375 GM/100 ML BAG IVPB SCH ×2 (10:21→16:49)
[2018-10-03] MEDS: GUAIFENESIN 600 MG SA TAB PO SCH ×2 (10:21→21:11)
--- NOTE | 2018-10-03 11:21 | P.PN ---
Subjective Date of Service: 10/03/18 Primary Care Provider: Dr. Bean; LATHE PULLER-Dr. Celeste Chief Complaint: Pneumonia Subjective: Other (Patient doing slightly better. Breathing improved.) Physical Examination - Vital Signs Temperature: 98.0 F Blood Pressure: 98/57 Pulse: 82 Respirations: 24 Pulse Ox (%): 92 - Physical Exam General: Alert, In no apparent distress, Oriented x3, Cooperative HEENT: Atraumatic Neck: Supple Respiratory: Diminished (To the left side), Crackles/rales (Left side) Cardiovascular: Normal pulses, Regular rate/rhythm Gastrointestinal: Normal bowel sounds, Soft and benign, Non-distended, No tenderness, No masses, No rebound, No guarding, Other (Postsurgical changes to the umbilical region) Musculoskeletal: No erythema, No tenderness, No warmth Integumentary: No tenderness/swelling, No erythema, No warmth, No cyanosis Neurological: Normal speech, Normal strength at 5/5 x4 extr, Normal tone, Normal affect - Studies Laboratory Data (last 24 hrs) 10/02/18 20:30: PT 12.8 H, INR 1.08 10/02/18 20:30: WBC 5.7 D, Hgb 12.5, Hct 37.8, Plt Count 283 D 10/02/18 20:30: Sodium 137, Potassium 3.7, BUN 7, Creatinine 0.70, Glucose 129 H , Magnesium 1.7 L, Total Bilirubin 0.2, AST 420 H*, ALT 553 H*, Alkaline Phosphatase 178 H Microbiology Data (last 24 hrs): 10/02/18 20:00 Nasopharnyx Influenza Type A Antigen Screen - Final 10/02/18 20:00 Nasopharnyx Influenza Type B Antigen Screen - Final Medications List Reviewed: Yes Assessment & Plan Discharge Plan: Home Plan to discharge in: 48 Hours Physician Review Additional Text: Impression: Moderate to large left-sided pneumonia complicated with recent hysterectomy this past week possible aspiration Diabetes mellitus type 2 GERD with history of gastric bypass in the past Elevated liver function likely related to underlying fatty liver Plan: Moderate to large left-sided pneumonia complicated with recent hysterectomy this past week possible aspiration: Patient started on IV Zosyn. Will continue with medication. Will recheck chest x-ray in the morning. Will maintain sats above 90%. Will wean off oxygen. Encourage incentive spirometer. Will ambulate with physical therapy. Will consult pulmonology for further recommendation. Provide medication for cough and congestion. Will monitor electrolytes closely. Will continue with IV fluids. Case discussed with her canal driver who performed hysterectomy this past week. Diabetes mellitus type 2: Will continue Accu-Cheks. Will monitor with sliding scale. GERD with history of gastric bypass in the past: Will provide PPI. Elevated liver function likely related to underlying fatty liver: Etiology unknown. Will send for hepatitis panel. Will monitor liver function test. Patient with history of gastric bypass. Recent surgery also noted. Patient may have underlying fatty liver. Will order abdominal ultrasound to further evaluate. Time Spent Managing Pts Care (In Minutes): 55
[2018-10-03] MEDS: BENZONATATE 100 MG CAP PO PRN ×2 (11:57→21:11)
--- NOTE | 2018-10-03 15:17 | EKG ---
Test Date: 2018-10-02 Test Time: 20:12:28 Reinforced Steel Placing Supervisor: MARYBETH MEASUREMENT RESULTS: Intervals: Rate: 109 OK: 114 QRSD: 84 QT: 310 QTc: 417 [place]: P: 36 OK: 114 QRS: 1 T: 10 INTERPRETIVE STATEMENTS: Sinus tachycardia Nonspecific T wave abnormality Abnormal ECG Compared to ECG 07/30/2018 16:01:14 Sinus rhythm no longer present T-wave abnormality still present Electronically Signed On 10-03-18 15:16:42 ICT SALES ASSISTANT by Isauro Coronado
--- NOTE | 2018-10-03 21:04 | RAD REPORT ---
EXAM DESCRIPTION: US - Abdomen Exam Complete - 10/03/2018 8:35 pm CLINICAL HISTORY: Abdominal pain/elevated liver enzymes COMPARISON: October 02, 2018 cat scan FINDINGS: The liver has a normal echotexture. The gallbladder is been removed The pancreas appears normal in size and echotexture The right kidney measures 12 centimeters with a normal echotexture. The left kidney measures 10 centimeters with a normal echotexture. The spleen measures 10 centimeters. The abdominal aorta and inferior vena cava appear unremarkable IMPRESSION: Unremarkable exam
[2018-10-04] MEDS: BENZONATATE 100 MG CAP PO PRN ×3 (01:30→17:36)
[2018-10-04] MEDS: PIPER/TAZO/NS 3.375gm 3.375 GM/100 ML BAG IVPB SCH ×3 (01:31→17:37)
[2018-10-04] MEDS: IBUPROFEN 200 MG TAB PO PRN ×2 (01:40→17:41)
[2018-10-04 06:10] LABS: Absolute Lymphocytes (CBC) 3.1 K/uL (0.7-4.9); Absolute Monocytes 0.3 K/uL (0.1-1.3); Basophils % 0.1 % (0-1.3); Eosinophils % 2.5 % (0-4.4); Hematocrit 33.4 % (36.0-45.0); Lymphocytes % 47.9 % (15.3-44.8); MCH 28.8 pg (27.0-35.0); MCV 86.4 fL (80-100); MPV 7.4 fL (7.6-11.3); Monocytes % 4.2 % (3.3-12.3); RBC Red Blood Cell Count 3.86 M/uL (3.86-4.86)
[2018-10-04 06:18] LABS: ALT/SGPT 222 U/L (12-78); AST/SGOT 67 U/L (15-37); Albumin 2.6 g/dL (3.4-5.0); Alkaline Phosphatase 126 U/L (45-117); BUN Blood Urea Nitrogen 7 mg/dL (7-18); Bicarbonate 28 mmol/L (21-32); Bilirubin Direct 0.1 mg/dL (0-0.2); Bilirubin Total 0.2 mg/dL (0.2-1.0); Glucose Level 109 mg/dL (74-106); Potassium 3.6 mmol/L (3.5-5.1); Protein, Total 6.3 g/dL (6.4-8.2); Sodium Level 140 mmol/L (136-145)
--- NOTE | 2018-10-04 06:41 | RAD REPORT ---
EXAM DESCRIPTION: Theresa Pa And Lat (2 Views)10/04/2018 6:33 am CLINICAL HISTORY: Cough COMPARISON: 10/03/2018 FINDINGS: No significant change in the left lower lobe opacities. Mild right basilar opacities have developed. The heart is normal size IMPRESSION: Bilateral pneumonia left worse than right
[2018-10-04] MEDS: INSULIN -REGULAR HUMAN 50 UNIT/0.5 ML ML SQ SCH ×4 (07:22→20:21)
[2018-10-04] MEDS: PANTOPRAZOLE 40MG TABLET PO SCH (07:50)
[2018-10-04] MEDS ORDERED: POTASSIUM 25 MEQ EFFERV TAB PO ONE (09:00)
[2018-10-04] MEDS: GUAIFENESIN 600 MG SA TAB PO SCH ×2 (09:28→20:22)
[2018-10-04] MEDS: NA CHLORIDE 0.9% 1,000 ML IV SCH ×2 (09:32→19:36)
--- NOTE | 2018-10-04 10:14 | P.PN ---
Subjective Date of Service: 10/04/18 Primary Care Provider: Dr. Bean; MAIL ORDER SORTER-Dr. Celeste Chief Complaint: Pneumonia Subjective: Other (Patient is slowly improving. Still with cough.) Physical Examination - Vital Signs Temperature: 98.3 F Blood Pressure: 105/57 Pulse: 82 Respirations: 22 Pulse Ox (%): 95 - Physical Exam General: Alert, In no apparent distress, Oriented x3, Cooperative HEENT: Atraumatic Neck: Supple Respiratory: Diminished (Bilateral but improved) Cardiovascular: Normal pulses, Regular rate/rhythm Gastrointestinal: Normal bowel sounds, Soft and benign, Non-distended, No tenderness, No masses, No rebound, No guarding Musculoskeletal: No erythema, No tenderness, No warmth Integumentary: No tenderness/swelling, No erythema, No warmth, No cyanosis Neurological: Normal speech, Normal strength at 5/5 x4 extr, Normal tone, Normal affect - Studies Medications List Reviewed: Yes Assessment & Plan Discharge Plan: Home Plan to discharge in: 48 Hours Physician Review Additional Text: Impression: Moderate to large left-sided pneumonia complicated with recent hysterectomy this past week possible aspiration Diabetes mellitus type 2 GERD with history of gastric bypass in the past Elevated liver function likely related to underlying fatty liver Plan: Moderate to large left-sided pneumonia complicated with recent hysterectomy this past week possible aspiration: Patient continues with IV Zosyn. White count remained stable. Continue to wean off oxygen. Maintain sats above 90%. Encourage incentive spirometer. Encourage ambulation. Pulmonology consulted to further evaluate. Continue to provide medication for cough and congestion. Continue IV fluids and adjust appropriately. Anticipate discharge once the patient is able to get off oxygen. Diabetes mellitus type 2: Will continue Accu-Cheks. Will monitor with sliding scale. GERD with history of gastric bypass in the past: Will continue to provide PPI. Elevated liver function likely related to underlying fatty liver: Etiology unknown but improved. Lab sent for hepatitis panel. Abdominal ultrasound unremarkable. Patient with history of gastric bypass. Recent surgery also noted. Patient may have underlying fatty liver. Time Spent Managing Pts Care (In Minutes): 55
[2018-10-04] MEDS: HYDROCODONE/APAP 7.5/325 MG TAB PO PRN ×2 (11:30→23:56)
[2018-10-04] MEDS ORDERED: POTASSIUM CL SA 10 MEQ TAB PO ONE (13:29)
[2018-10-05] MEDS ORDERED: LOPERAMIDE HCL 2 MG CAPSULE PO STA (00:05)
[2018-10-05] MEDS: BENZONATATE 100 MG CAP PO PRN (00:39)
[2018-10-05] MEDS: PIPER/TAZO/NS 3.375gm 3.375 GM/100 ML BAG IVPB SCH ×2 (00:40→09:06)
[2018-10-05 04:11] LABS: Absolute Lymphocytes (CBC) 4.2 K/uL (0.7-4.9); Absolute Monocytes 0.6 K/uL (0.1-1.3); Absolute Neutrophil 3.4 K/uL (1.8-8.0); Basophils % 0.3 % (0-1.3); Eosinophils % 3.3 % (0-4.4); Hematocrit 31.3 % (36.0-45.0); Lymphocytes % 49.9 % (15.3-44.8); MCH 29.2 pg (27.0-35.0); MCV 86.8 fL (80-100); MPV 7.2 fL (7.6-11.3); Monocytes % 6.9 % (3.3-12.3)
[2018-10-05 04:25] LABS: ALT/SGPT 163 U/L (12-78); AST/SGOT 69 U/L (15-37); Albumin 2.5 g/dL (3.4-5.0); Alkaline Phosphatase 119 U/L (45-117); BUN Blood Urea Nitrogen 5 mg/dL (7-18); Bicarbonate 28 mmol/L (21-32); Bilirubin Direct 0.1 mg/dL (0-0.2); Bilirubin Total 0.2 mg/dL (0.2-1.0); Glucose Level 105 mg/dL (74-106); Potassium 3.9 mmol/L (3.5-5.1); Protein, Total 6.2 g/dL (6.4-8.2); Sodium Level 143 mmol/L (136-145)
[2018-10-05] MEDS ORDERED: POTASSIUM CL SA 10 MEQ TAB PO ONE (04:45)
[2018-10-05] MEDS: NA CHLORIDE 0.9% 1,000 ML IV SCH (06:38)
[2018-10-05] MEDS: INSULIN -REGULAR HUMAN 50 UNIT/0.5 ML ML SQ SCH (07:30)
--- NOTE | 2018-10-05 08:32 | P.CNS ---
Date of Consult: 10/05/18 Primary Care Provider: Dr. Bean; DOUBLER HELPER-Dr. Celeste Chief Complaint: Pneumonia History of Present Illness: Patient is 43 years of age had a hysterectomy done on Friday discharged home on she woke up with so throat coughing fever productive sputum ended up in the hospital with a diagnosis of left lower lobe pneumonia she is doing much better now denies any chest pain Allergies No Known Drug Allergies Allergy (Verified 04/28/15 19:44) Unknown Home Medications: Metformin HCl 1,000 mg PO DAILY 10/03/18 - Past Medical/Surgical History Diabetic: Yes -: HTN -: IDDM -: Hyperlipidemia -: Abnormal liver function tests -: Severe anemia -: c-sections -: tubal ligation -: Cholecystectomy -: hysterctomy -: gastric bypass - Family History Father Medical History: Heart disease, Hypertension Mother Medical History: Heart disease, Diabetes, Cancer Notes: pancreatic cancer - Social History Smoking Status: Never smoker Alcohol use: No CD- Drugs: No Caffeine use: Yes Place of Residence: Home Review of Systems 10-point ROS is otherwise unremarkable Physical Examination Temp Pulse Resp BP Pulse Ox 97.9 F 69 20 96/55 L 92 10/05/18 04:00 10/05/18 04:00 10/05/18 04:00 10/05/18 04:00 10/05/18 04:00 General: Alert, In no apparent distress, Oriented x3 HEENT: PERRLA Respiratory: Clear to auscultation bilaterally Cardiovascular: No edema, Normal S1 S2 Gastrointestinal: Normal bowel sounds, Soft and benign - Problems (1) Pneumonia Onset Date: 05/01/15 Current Visit: No Status: Acute Plan: Patient is 43 years of age admitted with pneumonia after a hysterectomy as a left lower lobe infiltrate doing much better labs reviewed white count is normal cultures all negative patient can be discharged home on Augmentin for 10 days to follow up with me in 2 weeks with pre clinic chest x-ray patient has a history of anemia and is receiving iron transfusions she was scheduled for an EGD seeing GI Qualifiers: Pneumonia type: due to unspecified organism Laterality: left
[2018-10-05] MEDS: PANTOPRAZOLE 40MG TABLET PO SCH (09:05)
[2018-10-05] MEDS: GUAIFENESIN 600 MG SA TAB PO SCH (09:06)
[2018-10-05] MEDS: HYDROCODONE/APAP 7.5/325 MG TAB PO PRN (09:10)
--- NOTE | 2018-10-05 10:15 | RAD REPORT ---
EXAM DESCRIPTION: RAD - Chest Pa And Lat (2 Views) - 10/05/2018 9:32 am CLINICAL HISTORY: Pneumonia COMPARISON: October 04 TECHNIQUE: PA and lateral views of the chest were obtained. FINDINGS: The lungs are normal volume. Patient bilateral pneumonia findings have shown significant i mprovement. There is remnant infiltrate present. No failure or volume overload. Heart size is doug l and central vasculature is within normal limits. No pleural effusion or pneumothorax seen. No acu te bony finding noted. No aortic abnormality. IMPRESSION: Partial clearing of bilateral lung base pneumonia since prior day study.
[2018-10-05 11:34] VITALS: O2SAT 97
--- NOTE | 2018-10-05 11:48 | P.DS ---
Admission Date: 10/03/18 Discharge Date: 10/05/18 Primary Care Provider: Dr. Bean; CAMOUFLAGE SPECIALIST-Dr. Celeste Disposition: ROUTINE DISCHARGE Discharge Condition: GOOD Reason for Admission: Pneumonia Consultations: Pulmonary-Dr. Low Procedures: CT scan: COMPARISON: CT study July 30, 2018 TECHNIQUE: Following dynamic enhancement using 100 milliliters nonionic IV contrast, axial imaging of the chest, abdomen and pelvis was performed. Biphasic technique was utilized through the abdomen. No oral contrast administered. All CT scans are performed using dose optimization technique as appropriate and may include automated exposure control or mA/KV adjustment according to patient size. FINDINGS: Airspace opacification is present throughout much of the lung evans are otherwise clear. No cavitation or mass. No pleural effusion, pleural thickening or pneumothorax. No significant aortic or pulmonary arterial tree finding. Mediastinal and hilar regions show no mass or abnormal lymphadenopathy. No chest wall mass or axillary lymphadenopathy. The liver, spleen and pancreas show no suspicious findings. Cholecystectomy clips are present. No biliary tree dilatation. Symmetric renal function is seen with no mass or hydronephrosis. No adrenal abnormalities. Gastric bypass surgical changes are noted. No acute gastric finding. Small bowel loops are mildly prominent. Moderate stool volume present in the colon. No acute colon process. Uterus is absent matching surgical history. Small amount of air in the urinary bladder is presumed to be from recent catheterization or recent Crespo catheter placement. Maurer of the urinary bladder are mildly prominent for this degree of distention. Correlation can be made with any UA abnormality or findings of cystitis. A mild congestion or edema seen in the peritoneal fat, not unexpected for recent surgery. Patient has a supraumbilical ventral hernia. This is 3 cm in diameter with an 11 millimeter neck. No congested fat. No bowel involvement. The hernia is similar to the July study. Stranding in the lower abdominal subcutaneous fat matches the prior procedure or possibly the hysterectomy surgical change. No air, abscess or acute finding seen. No peritoneal or retroperitoneal source for infection seen. No acute or destructive bony process. No significant vascular findings. IMPRESSION: Moderately large left lower lobe pneumonia. Maurer of the urinary bladder are mildly prominent for the degree of distention. Cystitis is not excluded and can be correlated with any clinical findings or UA abnormalities. Small bowel loops are mildly prominent. A nonspecific enteritis would be possible. Additional nonacute findings are detailed in the body of the report. ABUS: COMPARISON: October 02, 2018 cat scan FINDINGS: The liver has a normal echotexture. The gallbladder is been removed The pancreas appears normal in size and echotexture The right kidney measures 12 centimeters with a normal echotexture. The left kidney measures 10 centimeters with a normal echotexture. The spleen measures 10 centimeters. The abdominal aorta and inferior vena cava appear unremarkable IMPRESSION: Unremarkable exam Follow up CXR: COMPARISON: October 04 TECHNIQUE: PA and lateral views of the chest were obtained. FINDINGS: The lungs are normal volume. Patient bilateral pneumonia findings have shown significant improvement. There is remnant infiltrate present. No failure or volume overload. Heart size is normal and central vasculature is within normal limits. No pleural effusion or pneumothorax seen. No acute bony finding noted. No aortic abnormality. IMPRESSION: Partial clearing of bilateral lung base pneumonia since prior day study. Medical Problem List: Moderate to large left-sided pneumonia complicated with recent hysterectomy this past week possible aspiration Diabetes mellitus type 2 GERD with history of gastric bypass in the past Elevated liver function likely related to underlying fatty liver Brief History of Present Illness: 43-year-old female presented emergency room with increased cough, congestion. Patient had recent hysterectomy. Patient found to moderate size left pneumonia. Patient was admitted for treatment. Hospital Course: Patient found to have moderate to large left-sided pneumonia complicated with recent history of hysterectomy. Patient was given IV antibiotic therapy and treatment. Patient did well in her stay. Patient weaned off oxygen. Patient seen and evaluated by pulmonology. No further intervention was required. At discharge patient will continue with Augmentin 875 mg 1 pill twice daily for 10 days. Patient also given Tessalon Perles 100 mg 3 times a day as needed for cough. Patient may use Mucinex over the counter for congestion. Pro air 2 puffs 3 times a day as needed for shortness of breath will also be provided. Recommendation is for the patient to follow up with pulmonology in 2-4 weeks to monitor her progress. Recommendation is to recheck chest x-ray in 2-4 weeks to monitor resolution. Patient will continue with incentive spirometer. Aspiration precaution is to be continued. Patient with diabetes mellitus type 2. Patient will continue with metformin 1000 mg daily. Recommendation is to maintain blood sugars less than 140 fasting and less than 200 after meals. Further adjustment can be done by her PCP. Patient likely has GERD. Patient with history of gastric bypass. At discharge patient will continue with Protonix 40 mg 1 pill once daily. Patient may benefit with GI evaluation as an outpatient. Patient with elevated liver function during her stay. This was improved at discharge. Patient with history of fatty liver. Recommendation is to recheck lab-CMP in 1 week to monitor resolution. Hepatitis panel pending at discharge. This can be followed up by her PCP. Vital Signs/Physical Exam: Temp Pulse Resp BP Pulse Ox 98.4 F 85 18 115/62 92 10/05/18 08:00 10/05/18 08:00 10/05/18 08:00 10/05/18 08:00 10/05/18 08:00 General: Alert, In no apparent distress, Oriented x3, Cooperative HEENT: Atraumatic Neck: Supple Respiratory: Clear to auscultation bilaterally, Normal air movement Cardiovascular: Normal pulses, Regular rate/rhythm Gastrointestinal: Normal bowel sounds, Soft and benign, Non-distended, No tenderness, No masses, No rebound, No guarding Musculoskeletal: No erythema, No tenderness, No warmth Integumentary: No tenderness/swelling, No erythema, No warmth, No cyanosis Neurological: Normal speech, Normal strength at 5/5 x4 extr, Normal tone, Normal affect Laboratory Data at Discharge: WBC 8.5 K/uL (4.3-10.9) D 10/05/18 03:35 Hgb 10.5 g/dL (12.0-15.0) L 10/05/18 03:35 Hct 31.3 % (36.0-45.0) L 10/05/18 03:35 Plt Count 245 K/uL (152-406) 10/05/18 03:35 PT 12.8 SECONDS (9.5-12.5) H 10/02/18 20:30 INR 1.08 10/02/18 20:30 Sodium 143 mmol/L (136-145) 10/05/18 03:35 Potassium 3.9 mmol/L (3.5-5.1) 10/05/18 03:35 BUN 5 mg/dL (7-18) L 10/05/18 03:35 Creatinine 0.60 mg/dL (0.55-1.3) 10/05/18 03:35 Glucose 105 mg/dL (74-106) 10/05/18 03:35 Magnesium 2.0 mg/dL (1.8-2.4) 10/05/18 03:35 Total Bilirubin 0.2 mg/dL (0.2-1.0) 10/05/18 03:35 AST 69 U/L (15-37) H 10/05/18 03:35 ALT 163 U/L (12-78) H 10/05/18 03:35 Alkaline Phosphatase 119 U/L (45-117) H 10/05/18 03:35 Lipase 39 U/L (73-393) L 10/03/18 07:05 Home Medications: Metformin HCl 1,000 mg PO DAILY 10/03/18 Albuterol Sulfate [Proair Hfa] 8.5 gm IH TID PRN #1 hfa.aer.ad 10/05/18 Amoxicillin/Potassium Clav [Augmentin 875-125 Tablet] 1 each PO BID #20 tablet 10/05/18 Benzonatate [Tessalon Perle*] 100 mg PO TID PRN #10 cap 10/05/18 Pantoprazole [Protonix Tab*] 40 mg PO DAILY #30 tab 10/05/18 New Medications: Albuterol Sulfate [Proair Hfa] 8.5 gm IH TID PRN #1 hfa.aer.ad PRN Reason: Shortness Of Breath Amoxicillin/Potassium Clav [Augmentin 875-125 Tablet] 1 each PO BID #20 tablet Benzonatate [Tessalon Perle*] 100 mg PO TID PRN #10 cap PRN Reason: Cough Pantoprazole [Protonix Tab*] 40 mg PO DAILY #30 tab Patient Discharge Instructions: 1. Patient will need a follow up with her PCP in 1 week to follow up this hospitalization. 2. Patient found to have moderate to large left-sided pneumonia complicated with recent history of hysterectomy. Patient was given IV antibiotic therapy and treatment. Patient did well in her stay. Patient weaned off oxygen. Patient seen and evaluated by pulmonology. No further intervention was required. At discharge patient will continue with Augmentin 875 mg 1 pill twice daily for 10 days. Patient also given Tessalon Perles 100 mg 3 times a day as needed for cough. Patient may use Mucinex over the counter for congestion. Pro air 2 puffs 3 times a day as needed for shortness of breath will also be provided. Recommendation is for the patient to follow up with pulmonology in 2-4 weeks to monitor her progress. Recommendation is to recheck chest x-ray in 2-4 weeks to monitor resolution. Patient will continue with incentive spirometer. Aspiration precaution is to be continued. 3. Patient with diabetes mellitus type 2. Patient will continue with metformin 1000 mg daily. Recommendation is to maintain blood sugars less than 140 fasting and less than 200 after meals. Further adjustment can be done by her PCP. 4. Patient likely has GERD. Patient with history of gastric bypass. At discharge patient will continue with Protonix 40 mg 1 pill once daily. Patient may benefit with GI evaluation as an outpatient. 5. Patient with elevated liver function during her stay. This was improved at discharge. Patient with history of fatty liver. Recommendation is to recheck lab-CMP in 1 week to monitor resolution. Hepatitis panel pending at discharge. This can be followed up by her PCP. Diet: ADA Activity: Ad marcelo Time spent managing pt's care (in minutes): 55
[2018-10-05 14:02] VITALS: BP 123/68; TEMP 98.3
[2018-10-08 02:59] LABS: HBsAG Nonreactive (Nonreactive); Hepatitis A IgM Antibody Nonreactive
== END 2018-10-05 14:52 | disposition home or self-care (01) | DRG 205 ==
LOC: ER 19:14 → 4TH 10-03 00:40
PROVIDERS: ADMIT Internal Medicine; ATTEND Family Medicine
DX: J95.89 Other postprocedural complications and disorders of respiratory system, not elsewhere classified (principal); J69.0 Pneumonitis due to inhalation of food and vomit; Y83.8 Other surgical procedures as the cause of abnormal reaction of the patient, or of later complication, without mention of misadventure at the time of the procedure; Y92.019 Unspecified place in single-family (private) house as the place of occurrence of the external cause; E11.9 Type 2 diabetes mellitus without complications; Z79.84 Long term (current) use of oral hypoglycemic drugs; K21.9 Gastro-esophageal reflux disease without esophagitis; Z98.84 Bariatric surgery status; K76.0 Fatty (change of) liver, not elsewhere classified; R94.5 Abnormal results of liver function studies; I10 Essential (primary) hypertension; E78.5 Hyperlipidemia, unspecified
CPT/HCPCS: 36415; 71045; 71046; 71260; 74177; 76700; 80048; 80074; 80076; 80329; 81003; 81015; 82962; 83605; 83690; 83735; 83880; 84145; 84484; 85025; 85610; 87040; 87070; 87081; 87205; 87804; 90670; 93005; 94760; 96365; 96366; 96367; 96368; 96375; 99285; G0008; G0009; J0456; J0696; J2270; J2405; J2543; J3370; J3475; J7030; Q2035; Q9967

== ENCOUNTER 2021-11-02 17:53 | Emergency (ER) | payer OTHER ==
--- OUTSIDE RECORDS SUMMARY | 2021-11-02 17:56 | XMS REPORT | Continuity of Care Document ---
:1975 Author Organization [facility] t Address [address] [place] [address] Care Team Providers Name Role Phone Unavailable Unavailable Unavailable Problems This patient has no known problems. Allergies, Adverse Reactions, Alerts This patient has no known allergies or adverse reactions. Medications Ordered Filled Start Stop Current Ordering Indication Dosage Frequency Signature Comments Components Source Medication Medication Date Date Medication? Clinician (SIG) Name Name MetFORMIN MetFORMIN Yes Jeff [address] [facility] HCl ER HCl ER [place] [facility] Procedures This patient has no known procedures. Encounters Start End Encounter Admission Attending Care Care Encounter Source Date/Time Date/Time Type Type Clinicians Facility Department ID 2021-10-30 2021-10-30 [facility] [id number] [facility] 2021-10-30 2021-10-30 [facility] [id number] [facility] 2021-09-11 2021-09-11 [facility] [id number] [facility] 2021-08-22 2021-08-22 [facility] [id number] [facility] 2021-08-21 2021-08-21 [facility] [id number] [facility] 2021-05-30 2021-05-30 [facility] [id number] [facility] 2021-05-23 2021-05-23 [facility] [id number] [facility] 2021-04-23 2021-04-23 [facility] [id number] [facility] 2021-04-23 2021-04-23 [facility] [id number] [facility] 2021-03-23 2021-03-23 [facility] [id number] [facility] 2021-01-02 2021-01-02 [facility] [id number] [facility] 2020-12-20 2020-12-20 [facility] [id number] [facility] 2020-11-13 2020-11-13 [facility] [id number] [facility] 2020-11-13 2020-11-13 [facility] [id number] [facility] 2020-11-06 2020-11-06 [facility] [id number] [facility] 2020-11-01 2020-11-01 [facility] [id number] [facility] 2020-11-01 2020-11-01 [facility] [id number] [facility] 2020-10-23 2020-10-23 [facility] [id number] [facility] 2020-07-14 2020-07-14 [facility] [id number] [facility] 2020-06-23 2020-06-23 [facility] [id number] [facility] 10[facility] 10:43:00 [facility] [place] [facility] 2020-04-07 2020-04-07 [facility] [id number] [facility] 09:15:00 09:15:00 [facility] [place] [facility] [facility] [email or web address] [facility] Medicine l Medicine Outpati ent Clinics 2020-02-07 2020-02-07 [facility] [id number] [facility] 11:00:00 11:00:00 [facility] [place] [facility] [email or web address] [facility] Medicine l Medicine Outpat[facility] ent Clinics 2020-02-04 2020-02-04 [facility] [id number] [facility] 11:08:00 11:08:00 t [place] [facility] [email or web address] [facility] Medicine Outpat[facility] Clinics 2019-11-29 2019-11-29 [facility] [id number] 12:18:00 12:18:00 [facility] [place] [facility] Medicine l Medicine Outpati ent Clinics 2019-11-23 2019-11-23 [facility] [id number] [facility] 10:45:00 10:45:00 [facility] [place] [facility] [facility] Medicine l Medicine Outpati ent Clinics 2019-11-08 2019-11-08 [facility] [id number] 13:00:00 13:00:00 [facility] [place] [facility] [facility] Medicine l Medicine Outpati ent Clinics 2019-10-11 2019-10-11 [facility] [id number] 15:30:00 15:30:[address] [facility] Medicine Outpati ent Clinics Results This patient has no known results.
--- NOTE | 2021-11-02 19:25 | ER ---
Nurse's Notes [facility] Name: Elizabeth Cormier Age: 46 yrs Sex: Female : 1975 Arrival Date: 11/02/2021 Time: 17:56 Bed Waiting [facility] MD: Diagnosis: ED Course: 11/02 17:56 Patient arrived in ED. ds1 Administered Medications: No medications were administered Outcome: 19:25 Patient left the ED. ld1 Signatures: Malaika Landa ds1 Merly Louis, RN RN ld1
== END 2021-11-02 19:25 | disposition left against medical advice (07) ==
LOC: ER 17:53
DX: Z02.9 Encounter for administrative examinations, unspecified (principal)

== ENCOUNTER 2022-01-16 09:43 | Day surgery (SDC) | payer OTHER ==
--- NOTE | 2022-01-10 09:17 | RAD REPORT ---
EXAM DESCRIPTION: RAD - Chest Pa And Lat (2 Views) - 01/10/2022 8:53 am CLINICAL HISTORY: Pre op pending knee arthroscopy COMPARISON: Two view chest 10/05/2018 TECHNIQUE: Frontal and lateral views of the chest were obtained. FINDINGS: The lungs are clear. Heart size is normal and central vasculature is within normal limit s. No pleural effusion or pneumothorax seen. No acute bony finding noted. No aortic abnormality. IMPRESSION: No acute cardiopulmonary process. No significant change from comparison study.
[2022-01-10 10:02] LABS: Absolute Lymphocytes (CBC) 3.8 K/uL (0.7-4.9); Hematocrit 40.3 % (36.0-45.0); Lymphocytes % 38.8 % (15.3-44.8); MPV 7.5 fL (7.6-11.3); RBC Red Blood Cell Count 4.46 M/uL (3.86-4.86)
[2022-01-10 10:06] LABS: Protime INR 0.99
[2022-01-10 10:17] LABS: BUN Blood Urea Nitrogen 12 mg/dL (7-18); Bicarbonate 30 mmol/L (21-32); Glucose Level 102 mg/dL (74-106); Potassium 3.8 mmol/L (3.5-5.1); Sodium Level 141 mmol/L (136-145)
[2022-01-16] MEDS ORDERED: NA CHLORIDE 0.9% 1,000 ML ONE (10:04)
[2022-01-16] MEDS ORDERED: FENTANYL CITR 100 MCG/2 ML ONE (10:13)
[2022-01-16] MEDS ORDERED: MIDAZOLAM HCL 2 MG/2 ML INJ ONE (10:13)
[2022-01-16] MEDS ORDERED: propofoL 200 MG/20 ML VIAL IV ONE (10:13)
[2022-01-16] MEDS ORDERED: ONDANSETRON 4 MG/2 ML VIAL ONE (10:14)
[2022-01-16] MEDS ORDERED: KETOROLAC 30 MG/ML INJ ONE (10:14)
[2022-01-16] MEDS ORDERED: dexAMETHasone 10 MG/ML VIAL ONE (10:14)
[2022-01-16] MEDS ORDERED: LIDOCAINE 2% MPF 5 ML VIAL ONE (10:14)
[2022-01-16] MEDS ORDERED: CEFAZOLIN SODIUM 1 GM/VIAL ONE (10:24)
[2022-01-16] MEDS ORDERED: BUPIVACAINE 0.25% PF 10 ML VIAL ONE (10:49)
--- NOTE | 2022-01-16 12:38 | P.BOP ---
Preoperative diagnosis: right medial meniscus tear Postoperative diagnosis: same, right medial femoral condyle chondromalacia Primary procedure: right knee arthroscopic partial medial meniscectomy Secondary procedure: right knee arthroscopic chondroplasty medial femoral condyle Director [employer] Systems: NONE,NONE Estimated blood loss: 3 cc Specimen: none Findings: see dictation Anesthesia: General Complications: None Implants: none Fluids & blood products: per anesthesia record; TT: 24 mins @ 300 mmHg Transferred to: Recovery Room Condition: Good
[2022-01-16] MEDS: FENTANYL CITR 100 MCG/2 ML ONE ×2 (13:01→13:07)
[2022-01-16] MEDS: HYDROCODONE/APAP 5/325 MG TAB ONE ×2 (13:40→14:48)
[2022-01-16 14:34] VITALS: BP 109/61; TEMP 97.3; O2SAT 96
--- NOTE | 2022-01-17 03:56 | OP ---
Date of Procedure: 01/16/2022 Surgeon: Rebel Sanz MD Preoperative Diagnosis: Right knee medial meniscus tear. Postoperative Diagnoses: 1.Right knee medial meniscus tear. 2.Right knee grade 4 chondromalacia, medial femoral condyle. Procedure Performed: 1.Right knee arthroscopic partial medial meniscectomy. 2.Right knee arthroscopic chondroplasty, medial femoral condyle. Anesthesia: General LMA. Fluids: Per Anesthesia record. Estimated Blood Loss: 3 cc. Implants: None. Complications: None. Tourniquet Time: 24 minutes at 300 mmHg. Indication For Procedure: Elizabeth is a 47-year-old female, who presented to my clinic with signs an d symptoms and MRI findings consistent with a right knee medial meniscus tear. I discussed with the patient at length the risks and benefits associated with operative and nonoperative treatment. She e xpressed understanding and elected to proceed with operative treatment. Description Of Procedure: After informed consent was obtained, the patient was identified in the pre operative holding area. The right lower extremity was marked. The patient was then brought back to the operating room, transferred to the operating table in a supine fashion, and placed under general LMA anesthesia. The right lower extremity was then prepped and draped in usual sterile fashion. A t bernardo-out was initiated. The correct patient and procedure were confirmed and identified. The patient did receive her preoperative prophylactic antibiotics. The right lower extremity was exsanguinated using an Esmarch and the tourniquet was inflated at 300 mmHg. Standard anteromedial and anterolatera l portals were created. Arthroscope was then brought in via the anterolateral portal. A diagnostic arthroscopy was performed. Arthroscope was first brought into the patellofemoral joint with the ramandeep ent noted to have some grade 3 chondromalacia changes on the undersurface of the patella. The arthro scope was then brought into the trochlear groove. There was no loose bodies found within the medial and lateral gutters. The arthroscope was then brought into the medial compartment and a complex tear of the posterior horn of medial meniscus was identified. A meniscal biters and arthroscopic shaver were used to perform a partial medial meniscectomy until stable borders were identified. The medial femoral condyle was then noted to have grade 4 chondromalacia changes of approximately 5 x 20 mm stri p of grade 4 chondromalacia changes within the medial femoral condyle. Along its most medial border, it was not amenable to microfracture given the location and diffuse nature. The arthroscope was the n brought to the intercondylar notch and the patient was noted to have intact ACL and PCL, which were stable to probe. The arthroscope was then brought to the lateral compartment with the patient noted have intact lateral meniscus, which was stable to probe as well as pristine cartilage of the lateral femoral condyle, lateral tibial plateau. Arthroscopic instruments were then removed without complic ation. Wounds were then irrigated thoroughly with normal saline. Portals were approximated using a 4-0 Monocryl. Sterile dressings were applied. Tourniquet was let down. The patient was awakened an d transferred to PACU in stable condition. Postoperative Plan: The patient will be weightbearing as tolerated. She will follow up in 1 week fo r a wound check. She will begin physical therapy at that time for post-meniscectomy protocol. JOHANNA/ELLENL Voice ID: [id number] Report ID: [id number]
== END 2022-01-16 14:00 | disposition home or self-care (01) ==
LOC: OR 09:43
PROVIDERS: ATTEND Orthopaedic Surgery Sports Medicine
PROC: 0SBC4ZZ Excision of Right Knee Joint, Percutaneous Endoscopic Approach (ICD-10-PCS; principal; 2022-01-16 11:00)
DX: S83.241A Other tear of medial meniscus, current injury, right knee, initial encounter (principal); M17.11 Unilateral primary osteoarthritis, right knee; E11.9 Type 2 diabetes mellitus without complications; E78.5 Hyperlipidemia, unspecified; K21.9 Gastro-esophageal reflux disease without esophagitis
CPT/HCPCS: 93005; 85025; 80048; 36415; 85610; 82947 ×2; 85730; 71046; 29881; J2704; J2250; J3010 ×2; J1100; J7030; J2405; J0690

== ENCOUNTER 2024-06-11 06:53 | Day surgery (SDC) | payer BC ==
[2024-06-08 15:53] LABS: Absolute Basophils 0.1 K/uL (0-0.5); Absolute Eosinophils 0.4 K/uL (0-0.5); Absolute Lymphocytes (CBC) 4.8 K/uL (0.7-4.9); Absolute Monocytes 0.7 K/uL (0.1-1.3); Absolute Neutrophil 3.2 K/uL (1.8-8.0); Basophils % 0.9 % (0-1.3); Hematocrit 37.1 % (36.0-45.0); Hemoglobin 11.6 g/dL (12.0-15.0); Lymphocytes % 52.2 % (15.3-44.8); MCH 28.2 pg (27.0-35.0); MCHC 31.2 g/dL (32.0-36.0); MCV 90.1 fL (80-100); MPV 7.1 fL (7.6-11.3); Monocytes % 7.8 % (3.3-12.3); Neutrophils % 35.1 % (41.7-73.7); Platelets 427 thou/uL (152-406); RBC Red Blood Cell Count 4.12 M/uL (3.86-4.86); Red Cell Distribution Width 15.7 % (12.1-15.2)
[2024-06-08 16:04] LABS: PT Prothrombin Time 10.5 SECONDS (9.4-12.5); PTT, Activated Partial Thromb 38.7 SECONDS (24.3-36.9); Protime INR 0.94
[2024-06-08 16:12] LABS: Anion Gap 8.9 mEq/L (5.0-15.0); Potassium 3.9 mEq/L (3.5-5.1)
--- NOTE | 2024-06-09 00:18 | RAD REPORT ---
EXAM DESCRIPTION: RAD - Chest Pa And Lat (2 Views) - 06/08/2024 3:49 pm CLINICAL HISTORY: pre op for day surgery. Hypertension COMPARISON: Chest Pa And Lat (2 Views) dated 01/10/2022; Chest Pa And Lat (2 Views) dated 10/05/2018; Chest Pa And Lat (2 Views) dated 10/04/2018; Chest Single View dated 10/02/2018 TECHNIQUE: PA and lateral views of the chest were obtained. FINDINGS: The lungs are clear. Heart size is normal and central vasculature is within normal limits. No pleural effusion or pneumothorax seen. No acute bony finding noted. IMPRESSION: No acute cardiopulmonary process.
[2024-06-11] MEDS ORDERED: LIDOCAINE 2% MPF 5 ML VIAL ONE (07:16)
[2024-06-11] MEDS ORDERED: propofoL 200 MG/20 ML VIAL IV ONE (07:16)
[2024-06-11] MEDS ORDERED: FENTANYL CITR 100 MCG/2 ML ONE (07:16)
[2024-06-11] MEDS ORDERED: ONDANSETRON 4 MG/2 ML VIAL ONE (07:16)
[2024-06-11] MEDS ORDERED: LIDOCAINE 1% MPF 30 ML VIAL ONE (07:16)
[2024-06-11] MEDS ORDERED: MIDAZOLAM HCL 2 MG/2 ML INJ ONE (07:16)
[2024-06-11] MEDS ORDERED: KETOROLAC 30 MG/ML INJ ONE (07:16)
[2024-06-11] MEDS ORDERED: dexAMETHasone 10 MG/ML VIAL ONE (07:16)
[2024-06-11] MEDS: NA CHLORIDE 0.9% 1,000 ML ONE (07:20)
[2024-06-11] MEDS: CEFAZOLIN SODIUM 1 GM/VIAL ONE (08:00)
[2024-06-11] MEDS: BUPIVACAINE 0.25% PF 10 ML VIAL ONE (08:38)
--- NOTE | 2024-06-11 08:55 | P.BOP ---
Preoperative diagnosis: Right carpal tunnel syndrome Postoperative diagnosis: Same Secondary procedure: Right open carpal tunnel release Brand Lead: NONE,NONE Estimated blood loss: 2 cc Specimen: None Findings: See dictation Anesthesia: Pender block Complications: None Implants: None Fluids & blood products: Per anesthesia record; tourniquet time 30 minutes at 300 mmHg Transferred to: Recovery Room Condition: Good
--- NOTE | 2024-06-11 08:57 | P.OP ---
Preoperative diagnosis: Right carpal tunnel syndrome Postoperative diagnosis: Same Secondary procedure: Right open carpal tunnel release Anesthesia: [place] block Estimated blood loss: 2 cc Specimen: None Findings: See dictation Operative Technique: Reason for Surgery: Elizabeth is a 49 year old female that presented to clinic with physical exam findings as well as EMG findings consistent with right carpal tunnel syndrome. I discussed with the patient at length risks and benefits associated with the procedure. She expressed understanding and elected proceed with operative treatment. Description of Procedure: After informed consent was obtained the patient was identified in the preoperative holding area. The right upper extremity was marked patient. Patient then brought back to the operating room transferred the operative table in supine fashion and placed under [place] block anesthesia. The right upper extremity was exsanguinated and the tourniquet was inflated to 300 mmHg. Approximately a 3 cm longitudinal incision was made just ulnar to the thenar crease. Dissection was then taken down to the palmar fascia which was identified. A [place] elevator was then placed just deep to the palmar fascia to protect the median nerve at all times. A 15 blade was then used to release the palmar fascia and transverse carpal ligament leaving the [place] elevator to protect the nerve at all times. Any remaining fascial bands were then released using a blunt tip Metzenbaum scissor. The tips were him superficially to protect the median nerve at all times. The wound was then irrigated thoroughly with normal saline. The skin was approximated using a 5-0 Prolene. Sterile dressings were applied and patient was awakened and transferred to PACU in stable condition. Postoperative plan: The patient will follow-up in 1 to 2 weeks for wound check and suture removal. She may begin to work on range of motion exercises at this time. Complications: None Implants: None Fluids & blood products: Per anesthesia record; tourniquet time 30 minutes at 300 mmHg Transferred to: Recovery Room Condition: Good
[2024-06-11 12:57] VITALS: O2SAT 100
[2024-06-11 13:14] VITALS: TEMP 97.1
[2024-06-11 13:15] VITALS: BP 107/78
== END 2024-06-11 09:45 | disposition home or self-care (01) ==
LOC: OR 06:53
PROVIDERS: ATTEND Orthopaedic Surgery Sports Medicine
PROC: 01N50ZZ Release Median Nerve, Open Approach (ICD-10-PCS; principal; 2024-06-11 08:00)
DX: G56.01 Carpal tunnel syndrome, right upper limb (principal)
CPT/HCPCS: 85025; 80048; 36415; 85610; 82947; 85730; 71046; 64721; J2704; J2001 ×2; J2250; J3010; J1100; J2405; J7030; J0690